=== PATIENT | female | born 1975 | race Caucasian/White ===

== ENCOUNTER 2017-09-18 14:24 | Emergency (ER) | payer BC, SELFPAY ==
[2017-09-18 15:00] VITALS: BP 147/82; PULSE 102; RESP 14; TEMP 36.6; O2SAT 97; BMI 39.7
[2017-09-18 23:16] LABS: UTC Influenza A Antigen Positive (Negative); UTC Influenza B Antigen Negative (Negative); UTC Strep Screen (Rapid) Negative (Negative)
== END 2017-09-18 15:15 | disposition home or self-care (01) ==
PROVIDERS: Emergency Provider Physician Assistant; Family Provider Family Medicine; PCP Family Medicine
DX: J10.1 Influenza due to other identified influenza virus with other respiratory manifestations (principal)
CPT/HCPCS: 87276; 87430; 87804; 87880; 99202

== ENCOUNTER → 2018-07-26 13:58 | Outpatient (CLI) | payer BC, SELFPAY ==
--- NOTE | 2018-07-26 14:02 | MM_ITS ---
MM Dig screening mamm BI w/CAD ORDERING PHYSICIAN : Neela Mckeon PATIENT AGE: 42 years GENDER: Female COMPARISON: Baseline study with no previous for comparison INDICATION: ITS.REASON: SCREENING no hormones no new complaints noncontributory family history. TECHNIQUE: Standard CC and MLO images were obtained. R2 CAD reviewed. FINDINGS: Low-density breast bilaterally. Generalized fatty replacement. No dominant mass nor suspicious calcifications in either breast. . No nodule or significant asymmetries. Multiple markers are placed bilaterally towards inferior breast. Annual follow-up recommended . IMPRESSION: . Negative baseline mammogram. .Low-density breast BI-RADS Category: 1 Negative RECOMMENDED FOLLOW-UP: 1YR 1 YEAR FOLLOW-UP (A letter has been sent to the patient regarding results of the study.)
== END ==
PROVIDERS: PCP Nurse Practitioner; Visit Provider Nurse Practitioner
DX: Z12.31 Encounter for screening mammogram for malignant neoplasm of breast (principal)
CPT/HCPCS: 77067

== ENCOUNTER → 2019-04-26 23:11 | Outpatient (CLI) | payer BC, SELFPAY | PROVIDERS: PCP Family Medicine; Visit Provider Emergency Medicine | DX: J45.909 Unspecified asthma, uncomplicated (principal); J40 Bronchitis, not specified as acute or chronic | CPT/HCPCS: 96372 ==

== ENCOUNTER → 2019-11-07 13:40 | Outpatient (CLI) | payer BC, SELFPAY ==
[2019-11-07 14:00] LABS: Basophils # 0.1 K/mm3 (0-0.2); Basophils % 0.7 % (0.1-2.0); Eosinophils # 0.1 K/mm3 (0.0-0.4); Eosinophils % 1.5 % (0.1-12.0); Hematocrit 43.1 % (37.0-47.0); Hemoglobin 13.7 g/dL (12.2-16.2); Lymphocytes # 1.7 K/mm3 (0.7-4.5); Lymphocytes % 20.9 % (10-50); Mean Corpuscular HGB Conc 31.7 g/dL (31.8-35.4); Mean Corpuscular Hemoglobin 25.9 pg (27.0-31.2); Mean Corpuscular Volume 81.7 fl (81-99); Mean Platelet Volume 7.7 fl (7.4-10.4); Monocytes # 0.4 K/mm3 (0.1-1.0); Monocytes % 4.4 % (1.7-9.3); Neutrophils # 5.8 K/mm3 (1.8-7.8); Neutrophils % 72.4 % (37.0-80.0); Platelet Count 401 K/mm3 (142-424); Red Blood Count 5.28 M/mm3 (4.20-5.40); Red Cell Distribution Width 14.2 % (11.5-17.5)
[2019-11-07 15:30] LABS: HCG Qualitative, Serum Negative (Negative)
[2019-11-07 15:43] LABS: Chloride 104 mmol/L (98-107); Potassium 4.8 mmoL/L (3.5-5.1); Sodium 138 mmol/L (136-145)
[2019-11-07 15:46] LABS: Anion Gap 15.8 mEq/L (5-15); Blood Urea Nitrogen 9 mg/dl (7-17); Carbon Dioxide 23 mmol/L (22.0-30.0); Estimated Glomerular Filt Rate 78 ml/min (>60); GFR (African American) 95 ML/MIN (>60); Glucose 116 mg/dl (74-100)
== END ==
PROVIDERS: Visit Provider Surgery
DX: L08.9 Local infection of the skin and subcutaneous tissue, unspecified (principal); L72.3 Sebaceous cyst
CPT/HCPCS: 36415; 80048; 84703; 85025

== ENCOUNTER 2020-07-28 09:07 | Emergency (ER) | payer BC, SELFPAY ==
[2020-07-28 09:20] VITALS: BP 158/99; PULSE 86; RESP 20; TEMP 36.7; O2SAT 99; BMI 39.4
--- NOTE | 2020-07-28 09:27 | XR_ITS ---
PROCEDURE: XR FOOT RT MIN 3V CLINICAL INDICATION: fall Pain following injury swelling in the the COMPARISON: No exams were available for comparison FINDINGS: No fracture or dislocation. No lytic or blastic change. There is normal mineralization. The joint spaces are well-preserved. No significant degenerative/arthritic changes. No erosive changes evident. Other findings:None. IMPRESSION: No acute findings. Dictated by: Lemuel Mayer MD 10/02/2020 14:33 Lemuel Mayer MD in [place] 10/02/2020 14:33
--- NOTE | 2020-07-28 09:27 | XR_ITS ---
PROCEDURE: XR ANKLE RT MIN 3V CLINICAL INDICATION: fall Pain following injury COMPARISON: No exams were available for comparison FINDINGS: No fracture or dislocation. No lytic or blastic change. There is normal mineralization. The joint spaces are well-preserved. No significant degenerative/arthritic changes. No erosive changes evident. Other findings:None. IMPRESSION: No acute findings. Dictated by: Lemuel Mayer MD 10/02/2020 14:34 Lemuel Mayer MD in [place] 10/02/2020 14:34
--- NOTE | 2020-07-28 09:58 | HMH.EDUTC ---
[facility] Disposition Clinical Impression: Right foot sprain Qualifiers: Encounter type: initial encounter Qualified Code(s): S93.601A - Unspecified sprain of right foot, initial encounter Right ankle sprain Qualifiers: Encounter type: initial encounter Involved ligament of ankle: unspecified ligament Qualified Code(s): S93.401A - Sprain of unspecified ligament of right ankle, initial encounter Disposition: Home, Self-Care Condition on Discharge: Good Instructions: DI for Ankle Sprain, DI for Foot Sprain Additional Instructions: Rest the extremity, apply ice for 15 minutes as tolerated three or four times per day, Wear the yovani wrap for compression, Elevate the extremity as tolerated while you are resting. Take ibuprofen for pain. I sent in a prescription to your pharmacy. Follow up with Dr. Vital (orthopedics). Sometimes there can be fractures that don't show up well on the first set of x-rays. So, you should follow up if you continue to have symptoms. I put in a referral but you need to call his office and schedule an appointment. Follow up with your regular doctor. GO TO THE ER FOR ANY WORSENING SYMPTOMS Prescriptions: Ibuprofen [Ibuprofen 600mg Tablet] 600 mg PO Q6HP PRN #30 tab PRN Reason: Mild Pain Transmission Status: Received by [facility] Referrals: Kaiser Rodgers MD [Primary Care Provider] - Omar Vital MD [Staff Physician] - Time of Disposition: 10:26 Medical Decision Making - Medical Records Medical records reviewed: No: I reviewed the patient's medical records. - Yves Inquiry Pt receiving controlled substance: No Vital Signs: 07/28/20 09:20 07/28/20 10:31 Temperature 98.1 F 98.1 F Temperature Source Oral Pulse Rate 86 Pulse Rate [Left Brachial] 86 Respiratory Rate 20 20 Blood Pressure 158/99 H Blood Pressure [Left Arm] 158/99 H Blood Pressure Mean [Left Arm] 118 Blood Pressure Source [Left Arm] Automatic Cuff Blood Pressure Position [Left Arm] Sitting 02 Sat by Pulse Oximetry 99 Oxygen Delivery Method Room Air Orders (Tests/Meds): ORDERS Category Date Time Status XR ankle RT min 3V Stat Exams 07/28/20 09:27 Taken XR foot RT min 3V Stat Exams 07/28/20 09:27 Taken - Radiology Data #1 Image(s): Ankle Image Reviewed: Yes I reviewed the patient's radiology image, Yes I have reviewed radiologist's interpretation Preliminary Findings: Normal/NAD, No Fracture Seen PROCEDURE: XR FOOT RT MIN 3V CLINICAL INDICATION: fall COMPARISON: No exams were available for comparison FINDINGS: No fracture or dislocation. No lytic or blastic change. There is normal mineralization. The joint spaces are well-preserved. No significant degenerative/arthritic changes. No erosive changes evident. Other findings:None. IMPRESSION: No acute findings. Dictated by: Test, Test 07/28/2020 10:14 Test, Test in [place] 07/28/2020 10:14 #2 Image(s): Foot/Toes Image Reviewed: Yes I reviewed the patient's radiology image, Yes I have reviewed radiologist's interpretation Preliminary Findings: Normal/NAD PROCEDURE: XR ANKLE RT MIN 3V Test dictation CLINICAL INDICATION: fall COMPARISON: No exams were available for comparison FINDINGS: IMPRESSION: No acute findings. Dictated by: Test, Test 07/28/2020 10:25 in [facility] HPI - General Stated complaint: AO [id number] right foot home accident Time Seen by Provider: 07/28/20 09:58 Mode of Arrival: Ambulatory Source of Information: Patient Limitations: No Limitations Description of Symptoms (Recalled from Triage Doc. by RN): PATIENT C/O PAIN/INJURY TO RIGHT FOOT AFTER FALLING OFF OF A STEP ON HER DECK TUESDAY. DENIES ANY OTHER INJURIES HEENT Symptoms (Recalled from RN notes): No Resp Symptoms (Recalled from RN notes): No Skin Symptoms (Recalled from RN notes): No MS Symptoms (Recalled from RN notes): Yes Functional Status (Recalled from RN notes): WNL
[2020-07-28 10:31] VITALS: BP 158/99; PULSE 86; RESP 20; TEMP 36.7; O2SAT 99
== END 2020-07-28 10:32 | disposition home or self-care (01) ==
PROVIDERS: Emergency Provider Nurse Practitioner Family; PCP Family Medicine
DX: S93.601A Unspecified sprain of right foot, initial encounter (principal); S93.401A Sprain of unspecified ligament of right ankle, initial encounter; W10.9XXA Fall (on) (from) unspecified stairs and steps, initial encounter; Y92.019 Unspecified place in single-family (private) house as the place of occurrence of the external cause
CPT/HCPCS: 73610; 73630; 99201

== ENCOUNTER → 2020-08-23 20:02 | Outpatient (CLI) | payer BC, SELFPAY ==
[2020-08-23 20:11] VITALS: BMI 34.3
== END ==
PROVIDERS: PCP Family Medicine; Visit Provider Nurse Practitioner
DX: J06.9 Acute upper respiratory infection, unspecified (principal)
CPT/HCPCS: 96372

== ENCOUNTER → 2022-06-23 09:41 | Outpatient (CLI) | payer BC, SELFPAY ==
[2022-06-23 12:43] LABS: Free Thyroxine Index 2.7 ug/dL (5.93-13.13); T4 (Thyroxine) 7.2 ug/dl (5.53-11.0); Triiodothryronine (T3) Uptake 37 % (23.5-40.5)
[2022-06-23 12:56] LABS: Thyroid Stimulating Hormone 2.14 uIU/mL (0.465-4.68)
== END ==
PROVIDERS: PCP Family Medicine; Visit Provider Obstetrics & Gynecology
DX: N92.0 Excessive and frequent menstruation with regular cycle (principal)
CPT/HCPCS: 36415; 84436; 84443; 84479

== ENCOUNTER → 2022-06-28 15:15 | Outpatient (CLI) | payer BC, SELFPAY ==
--- NOTE | 2022-06-28 15:15 | US_ITS ---
FINAL REPORT CLINICAL HISTORY: abnormal bleeding FINDINGS: Transvaginal sonographic images of the pelvis were obtained. The uterus measures 12.6 x 8.0 x 8.3 cm. Are multiple uterine fibroids measuring up to 4.1 cm.. The endometrium is not well visualized. No adnexal mass is seen. The right ovary measures 3.8 cm in length and left ovary measures 3.0 cm in length. Normal blood flow seen to the ovaries. There is no evidence of free fluid. No IUD is identified. IMPRESSION: Uterine fibroids measuring up to 4.1 cm. No IUD identified. Reviewed, Interpreted and Dictated by Jake Murrell III, MD Transcribed by Mikaela Wolff Authenticated and [facility]
== END ==
PROVIDERS: PCP Family Medicine; Visit Provider Obstetrics & Gynecology
DX: N93.9 Abnormal uterine and vaginal bleeding, unspecified (principal)
CPT/HCPCS: 76830

== ENCOUNTER → 2022-07-07 14:42 | Outpatient (CLI) | payer BC, SELFPAY ==
--- NOTE | 2022-07-07 14:43 | MM_ITS ---
PROCEDURE INFORMATION: Exam: MG Bilateral Screening 3D Mammography Exam date and time: 07/07/2022 2:47 PM Age: 46 years old Clinical indication: Screening. No family history of breast cancer. TECHNIQUE: Imaging protocol: Bilateral Screening tomosynthesis and 2D mammography including computer-aided detection (CAD) when performed. COMPARISON: MG SCBI MM Dig screening mamm BI w/CAD 07/26/2018 2:35 PM FINDINGS: MAMMOGRAPHY: Breast composition: The breasts are almost entirely fatty. Mass: None. Architectural distortion: None. Calcifications: No suspicious calcifications. Asymmetric density: None. Skin thickening: None. Axillary adenopathy: None. IMPRESSION: No mammographic evidence of malignancy. Annual screening is recommended unless otherwise clinically indicated. ASSESSMENT: BI-RADS Category 1: Negative
== END ==
PROVIDERS: PCP Family Medicine; Visit Provider Obstetrics & Gynecology
DX: Z12.31 Encounter for screening mammogram for malignant neoplasm of breast (principal)
CPT/HCPCS: 77063; 77067

== ENCOUNTER → 2022-11-05 15:42 | Outpatient (CLI) | payer BC, SELFPAY ==
[2022-11-05 16:59] LABS: T4 (Thyroxine) 10.5 ug/dl (5.53-11.0)
[2022-11-05 18:17] LABS: Free Thyroxine Index 3.2 ug/dL (5.93-13.13); Triiodothryronine (T3) Uptake 30 % (23.5-40.5)
== END ==
PROVIDERS: PCP Family Medicine; Visit Provider Obstetrics & Gynecology
DX: R79.89 Other specified abnormal findings of blood chemistry (principal)
CPT/HCPCS: 36415; 84436; 84443; 84479

== ENCOUNTER 2023-01-21 10:03 | Emergency (ER) | payer BC, SELFPAY ==
--- NOTE | 2023-01-21 10:09 | XR_ITS ---
FINAL REPORT CLINICAL HISTORY: PAIN IN GREAT TOE FINDINGS: Right foot Three views were obtained. There is no acute fracture or dislocation. Note is made of mild hallux valgus deformity. There are minimal degenerative changes in the midfoot and 1st metatarsophalangeal joint. No soft tissue abnormality is identified. IMPRESSION: No acute process. Reviewed, Interpreted and Dictated by Fernando Henriquez MD Transcribed by Tennille Lopez Authenticated and [facility]
--- NOTE | 2023-01-21 10:27 | EXP.UTC ---
Discharge Plan Disposition Patient Disposition: Home, Self-Care Condition: Good Prescriptions Prescriptions: New methylprednisolone 4 mg Tablets,Dose Pack 4 mg PO DIRECTED Qty: 21 0RF No Action Oriahnn 300-1-0.5mg(AM) /300 mg(PM) capsule, sequential See Rx Instructions PO .COMPLEX Qty: 56 12RF Rx Instructions: take 1 YELLOW (multi-ingredient) capsule each morning; take 1 BLUE (elagolix) capsule each evening PO Referrals Follow up/Referrals: Alberto Palomino MD [Primary Care Provider] - See instructions Oneida Metcalf DPM [Staff Physician] - See instructions Activity Restrictions/Add. Instructions Additional Instructions/Restrictions: Rest the extremity, Elevate the extremity as tolerated while you are resting. Follow up with Dr. Metcalf (podiatry). I put in a referral but you need to call her office and schedule an appointment. Follow up with your regular doctor. GO TO THE ER FOR ANY WORSENING SYMPTOMS Clinical Impressions Clinical Impression: Acute pain of right foot Stand Alone Forms Stand Alone Forms: Work/School Release Instructions Patient Instructions: DI for Metatarsalgia, DI for Foot Pain Discharge ED Provider: Hunter Dinero [facility] General Stated complaint: right big toe pain Time Seen by Provider: 01/21/23 10:27 History of Present Illness Provider Complaint: She c/o right foot pain for the past 2 days with no known injury. she denies any history of gout. She is not a diabetic. Related Data Previous Rx's Medication Instructions Recorded [id number] 300-1-0.5 See Rx Instructions PO .COMPLEX 06/30/22 mg(AM)/elagolix 300 mg(PM) #56 caps capsules (Oriahnn) methylprednisolone 4 mg tablets in 4 mg PO DIRECTED #21 tabs 01/21/23 a dose pack Allergies Allergy/AdvReac Type Severity Reaction Status Date / Time erythromycin base Allergy Verified 06/30/22 07:58 [facility] Disclaimer: The information contained in this section may have been updated after the patient was seen, as this information can be updated by other users. Medical History Dysmenorrhea Enlarged uterus History of PCOS Menorrhagia Obesity (BMI 35.0-39.9 without comorbidity) Uterine fibroid Surgical History History of section, classical History of cholecystectomy History of removal of neck cyst History of wisdom tooth extraction, class I edentulism Social History Smoking Status: Never smoker alcohol intake: never substance use type: other current occupational status: other Travel in the last 8 weeks: None household members: spouse housing: house current occupation: [employer] caffeine: Yes ROS Obtained: Yes All systems reviewed & no additional complaints except as documented Constitutional Constitutional: Denies chills and Denies fever(s) Eyes Eyes: Denies eye discharge ENT Ears, Nose, Mouth, and Throat: Denies dizziness, Denies otalgia and Denies sore throat Cardiovascular Cardiovascular: Denies chest pain Respiratory Respiratory: Denies shortness of breath, Denies chest congestion, Denies cough, Denies stridor and Denies wheezing Gastrointestinal Gastrointestingal: Denies nausea or vomiting Musculoskeletal Musculoskeletal: Reports as per HPI Integumentary/Breasts Skin/Breast: Denies rash Neurologic Neurologic: Denies dizziness and Denies paresthesias Allergic/Immunologic Allergic/Immunologic: Denies wheezing Physical Exam General General appearance: alert and in no apparent distress Head Head exam: atraumatic, normocephalic and normal inspection Eye Eye exam: Present normal appearance, PERRL and EOMI ENT ENT exam: Present normal exam, normal oropharynx, mucous membranes moist, TM's normal bilaterally and normal external ear exam Neck Neck exam: Present normal inspection, full ROM
[2023-01-21 10:29] VITALS: BP 118/87; PULSE 80; RESP 18; TEMP 37.4; O2SAT 99; BMI 40.8
[2023-01-21 11:22] LABS: Chloride 100 mmol/L (98-107); Sodium 138 mmol/L (136-145)
[2023-01-21 11:23] LABS: Potassium 4.1 mmoL/L (3.5-5.1)
[2023-01-21 11:26] LABS: Anion Gap 17.1 mEq/L (5-15); Blood Urea Nitrogen 9 mg/dl (7-17); Calcium 8.7 mg/dl (8.4-10.2); Carbon Dioxide 25 mmol/L (22.0-30.0); Creatinine Clearance Estimated 150 mL/min (50-200); Estimated Glomerular Filt Rate 77 ml/min (>60); GFR (African American) 93 ML/MIN (>60); Glucose 98 mg/dl (74-100)
[2023-01-21 11:27] LABS: Basophils # 0.1 K/mm3 (0-0.2); Basophils % 0.9 % (0.1-2.0); Eosinophils # 0.1 K/mm3 (0.0-0.4); Eosinophils % 1.7 % (0.1-12.0); Hematocrit 35.8 % (37.0-47.0); Hemoglobin 11.4 g/dL (12.2-16.2); Lymphocytes # 1.8 K/mm3 (0.7-4.5); Mean Corpuscular HGB Conc 31.8 g/dL (31.8-35.4); Mean Corpuscular Volume 66.1 fl (81-99); Mean Platelet Volume 7.8 fl (7.4-10.4); Monocytes # 0.4 K/mm3 (0.1-1.0); Monocytes % 5.6 % (1.7-9.3); Neutrophils # 4.5 K/mm3 (1.8-7.8); Neutrophils % 65.9 % (37.0-80.0); Platelet Count 432 K/mm3 (142-424); Red Blood Count 5.41 M/mm3 (4.20-5.40); White Blood Count 6.8 K/mm3 (4.8-10.8)
[2023-01-21 11:31] LABS: C-Reactive Protein 9.9 mg/L (0-4); Uric Acid 4.3 mg/dl (2.5-6.2)
[2023-01-21 12:10] VITALS: BP 118/87; PULSE 80; RESP 18; TEMP 37.4; O2SAT 99
[2023-01-21 12:26] LABS: Erythrocyte Sedimentation Rate 16 mm/hr (0-20)
== END 2023-01-21 12:20 | disposition home or self-care (01) ==
PROVIDERS: Emergency Provider Nurse Practitioner Family; PCP Family Medicine
DX: M79.671 Pain in right foot (principal)
CPT/HCPCS: 73630; 80048; 84550; 85025; 85651; 86140; 96372; 99212; 99214; G0463

== ENCOUNTER → 2023-05-12 00:07 | Outpatient (CLI) | payer BC, SELFPAY | PROVIDERS: PCP Nurse Practitioner Family; Visit Provider Nurse Practitioner Family | DX: J02.9 Acute pharyngitis, unspecified (principal) | CPT/HCPCS: 87070 ==

== ENCOUNTER → 2023-05-12 16:46 | Outpatient (CLI) | payer BC, SELFPAY ==
[2023-05-12 11:57] LABS: Coronavirus 19, PCR Not Detected (NotDetected); Influenza A, PCR Not Detected (NotDetected); Influenza B, PCR Not Detected (NotDetected)
== END ==
PROVIDERS: PCP Nurse Practitioner Family; Visit Provider Nurse Practitioner Family
DX: J02.9 Acute pharyngitis, unspecified (principal); J06.9 Acute upper respiratory infection, unspecified
CPT/HCPCS: 87636

== ENCOUNTER 2023-05-16 21:24 | Emergency (ER) | payer BC, SELFPAY ==
--- NOTE | 2023-05-16 01:00 | XR_ITS ---
PROCEDURE INFORMATION: Exam: XR Left Hip Exam date and time: 05/16/2023 11:43 PM Age: 47 years old Clinical indication: Injury or trauma; Fall; Blunt trauma (contusions or hematomas); Left; Hip; Additional info: Acute pain after fall TECHNIQUE: Imaging protocol: Radiologic exam of the left hip. Views: 2 or 3 views hip with pelvis when performed. COMPARISON: CR XR FEMUR LT 2V 05/16/2023 10:25 PM FINDINGS: Bones/joints: There is mild osteoarthritis of the hips with joint space narrowing, productive changes, and subchondral sclerosis. There are partially visualized degenerative changes of the sacroiliac joints and lumbar spine as well as some degenerative disease of the pubic symphysis. Soft tissues: Unremarkable. Other findings: The examination is limited by under penetration. IMPRESSION: Mildly limited study without evidence for fracture. If concern persists, CT would be more sensitive.
[2023-05-16 21:25] VITALS: BP 173/85; PULSE 87; RESP 20; TEMP 37.3; O2SAT 98; BMI 40.3
--- NOTE | 2023-05-16 21:40 | PC.NURSE ---
V/O for left XR for femur and knee per MD as well as 4mg of Zofran IVP and 4mg Morphine IVP
--- NOTE | 2023-05-16 21:41 | XR_ITS ---
PROCEDURE INFORMATION: Exam: XR Left Femur Exam date and time: 05/16/2023 10:25 PM Age: 47 years old Clinical indication: Injury or trauma; Fall; Blunt trauma; Thigh or upper leg; Patient HX: Patient fell down hill, left distal femur pain. TECHNIQUE: Imaging protocol: Radiologic exam of the left femur. Views: 2 views. COMPARISON: No relevant prior studies available. FINDINGS: Bones/joints: There is partially visualized degenerative disease of the knee and left hip. No acute fracture or dislocation is identified. Soft tissues: Unremarkable. IMPRESSION: Degenerative disease without acute injury identified.
--- NOTE | 2023-05-16 21:41 | XR_ITS ---
PROCEDURE INFORMATION: Exam: XR Left Knee Exam date and time: 05/16/2023 10:25 PM Age: 47 years old Clinical indication: Injury or trauma; Blunt trauma; Patient HX: Left knee pain due to fall down hill. TECHNIQUE: Imaging protocol: Radiologic exam of the left knee. Views: 3 views. COMPARISON: No relevant prior studies available. FINDINGS: Bones/joints: There is tricompartmental osteoarthritis with loss of joint space, subchondral sclerosis, and productive changes. No acute fracture or dislocation is identified. Soft tissues: Normal. IMPRESSION: Degenerative disease without acute injury identified.
[2023-05-16 23:30] VITALS: BP 123/72; PULSE 85; RESP 20; O2SAT 97
--- NOTE | 2023-05-16 23:38 | HMH.EDGENADL ---
Discharge Plan Disposition Patient Disposition: Home, Self-Care Condition: Good Prescriptions Prescriptions: No Action bupropion HCl [Wellbutrin XL] 300 mg tablet extended release 24 hr 300 mg PO DAILY Qty: 90 3RF hydrochlorothiazide 12.5 mg capsule 12.5 mg PO DAILY Qty: 90 0RF benzonatate 200 mg capsule 200 mg PO TID PRN (Reason: cough) 10 Days Qty: 30 0RF Oriahnn 300-1-0.5mg(AM) /300 mg(PM) capsule, sequential See Rx Instructions PO .COMPLEX Qty: 56 12RF Rx Instructions: take 1 YELLOW (multi-ingredient) capsule each morning; take 1 BLUE (elagolix) capsule each evening PO dextroamphetamine-amphetamine [Adderall XR] 10 mg capsule,extended release 24hr 10 mg PO DAILY Qty: 30 0RF Referrals Follow up/Referrals: Melania Camacho APRN [Primary Care Provider] - See instructions Activity Restrictions/Add. Instructions Additional Instructions/Restrictions: Please return to the emergency department if you experience any new or worsening symptoms. Clinical Impressions Clinical Impression: Hamstring muscle strain Qualifiers: Encounter type: initial encounter Laterality: left Qualified Code(s): S76.312A - Strain of muscle, fascia and tendon of the posterior muscle group at thigh level, left thigh, initial encounter Discharge ED Provider: Juanjo Coles General Adult HPI General Chief complaint: Extremity Injury, Lower Stated complaint: AO09/04 fall LT leg pain Time Seen by Provider: 05/16/23 23:30 Mode of Arrival: Ambulatory Source of Information: Patient Limitations: No Limitations Description of Symptoms (Recalled from ER Triage Doc. by RN): Patient reports she slipped down a hill with left leg forward and the other leg backward. PAtient reports shooting pain down left thigh into her ankle. +PMS. Denies LOC or hitting head during fall History of Present Illness HPI narrative: Patient presents for evaluation of left gluteal and posterior thigh pain acute in onset, constant, stable in course occurring after nonsyncopal fall from standing shortly prior to arrival, patient denies chronic issues with motor weakness or any previous surgeries of lower extremity or back. No previous therapies, denies head injury or any midline spinal tenderness, pain is sharp and nonradiating. No distal numbness or tingling. Patient has been able to ambulate. Related Data Previous Rx's Medication Instructions Recorded [id number] 300-1-0.5 See Rx Instructions PO .COMPLEX 06/30/22 mg(AM)/elagolix 300 mg(PM) #56 caps capsules (Oriahnn) bupropion HCl 300 mg 24 hr tablet, 300 mg PO DAILY #90 tabs 05/12/23 extended release (Wellbutrin XL) dextroamphetamine-amphetamine ER 10 mg PO DAILY #30 caps 05/12/23 10 mg 24hr capsule,extend release (Adderall XR) hydrochlorothiazide 12.5 mg capsule 12.5 mg PO DAILY #90 caps 05/12/23 benzonatate 200 mg capsule 200 mg PO TID PRN cough 10 days 05/13/23 #30 caps Allergies Allergy/AdvReac Type Severity Reaction Status Date / Time erythromycin base AdvReac Mild Vomiting Verified 05/12/23 10:55 [facility] Disclaimer: The information contained in this section may have been updated after the patient was seen, as this information can be updated by other users. Medical History Acute pain of right foot Dehydration after exertion Dysmenorrhea Enlarged uterus History of PCOS Menorrhagia Obesity (BMI 35.0-39.9 without comorbidity) Right ankle sprain Right foot sprain Tension headache Uterine fibroid Walking pneumonia Surgical History History of section, classical History of cholecystectomy History of removal of neck cyst History of wisdom tooth extraction, class I edentulism Social History Smoking Status: Never smoker alcohol intake: never substance use type: other current occupat
[2023-05-17] VITALS: BP 132/74; PULSE 80; RESP 18; O2SAT 97
[2023-05-17 00:30] VITALS: BP 121/71; PULSE 76; RESP 20; O2SAT 96
--- NOTE | 2023-05-17 00:56 | PC.NURSE ---
Report handed off to shift superintendent Shanna DAVID
[2023-05-17 01:00] VITALS: BP 131/86; PULSE 71; RESP 16; O2SAT 98
--- NOTE | 2023-05-17 01:05 | PC.NURSE ---
Report given to Alec DAVID
[2023-05-17 01:30] VITALS: BP 143/89; PULSE 75; O2SAT 97
--- NOTE | 2023-05-17 02:10 | PC.NURSE ---
in room talking with patient at this time.
[2023-05-17 02:20] VITALS: BP 143/89; PULSE 74; RESP 16; TEMP 37; O2SAT 98
== END 2023-05-17 02:25 | disposition home or self-care (01) ==
PROVIDERS: Emergency Provider Emergency Medicine; PCP Nurse Practitioner Family
DX: S76.312A Strain of muscle, fascia and tendon of the posterior muscle group at thigh level, left thigh, initial encounter (principal); W17.81XA Fall down embankment (hill), initial encounter
CPT/HCPCS: 73502; 73552; 73562; 96374; 96375; 99284; J2405

== ENCOUNTER → 2023-06-08 11:40 | Outpatient (CLI) | payer BC, SELFPAY ==
[2023-06-08 11:46] LABS: Microscopic, Urine URINE MICROSCOPIC (MICROSCOPIC)
[2023-06-08 12:13] LABS: Appearance,Urine CLEAR (Clear); Bilirubin,Urine Negative (Negative); Blood, Urine Negative (Negative); Color,Urine YELLOW (Yellow); Glucose,Urine (UA) Negative (Negative); Ketones,Urine Negative (Negative); Leukocyte Esterase,Urine Negative (Negative); Nitrate,Urine Negative (Negative); Protein,Urine Negative (Negative); Specific Gravity, Urine 1.025 (1.005-1.030); Urobilinogen,Urine 0.2 EU/dl (0.2)
[2023-06-08 12:14] LABS: Basophils % 0.6 % (0.1-2.0); Eosinophils # 0.1 K/mm3 (0.0-0.4); Eosinophils % 2.4 % (0.1-12.0); Hemoglobin 12.1 g/dL (12.2-16.2); Lymphocytes # 1.6 K/mm3 (0.7-4.5); Lymphocytes % 29.4 % (10-50); Mean Corpuscular HGB Conc 30.3 g/dL (31.8-35.4); Mean Corpuscular Hemoglobin 23.3 pg (27.0-31.2); Mean Corpuscular Volume 76.9 fl (81-99); Mean Platelet Volume 6.8 fl (7.4-10.4); Monocytes # 0.4 K/mm3 (0.1-1.0); Monocytes % 6.5 % (1.7-9.3); Neutrophils # 3.3 K/mm3 (1.8-7.8); Neutrophils % 61.2 % (37.0-80.0); Platelet Count 412 K/mm3 (142-424); Red Cell Distribution Width 16.8 % (11.5-17.5); White Blood Count 5.4 K/mm3 (4.8-10.8)
[2023-06-08 12:29] LABS: Bacteria,Urine Trace /lpf; Mucus,Urine Trace /lpf; Squamous Epithelial Cell,Urine Occasional #/hpf (0-5)
[2023-06-08 12:30] LABS: Hemoglobin A1C 5.6 % (4.0-6.0); Total Protein,Urine Random < 5.0 mg/dL (0.0-12.0)
[2023-06-08 12:34] LABS: Benzodiazepines Screen,Urine Negative ng/ml (<200)
[2023-06-08 12:35] LABS: Amphetamine/Metha Screen,Urine Positive ng/ml (<1000)
[2023-06-08 12:36] LABS: Barbiturates Screen,Urine Negative ng/ml (<200); Methadone Screen,Urine Negative ng/ml (<300)
[2023-06-08 12:37] LABS: Cannabinoid Screen,Urine Negative ng/ml (<50)
[2023-06-08 12:38] LABS: Cocaine Screen,Urine Negative ng/ml (<300); Opiate Screen,Urine Negative ng/ml (<300)
[2023-06-08 12:39] LABS: Phencyclidine Screen,Urine Negative ng/ml (<25)
[2023-06-08 12:58] LABS: Alanine Aminotransferase 29 U/L (12-78); Albumin Level 4.1 g/dl (3.5-5.0); Albumin/Globulin Ratio 1.2 (1.1-1.8); Alkaline Phosphatase 63 U/L (38-126); Anion Gap 12.8 mEq/L (5-15); Aspartate Amino Transferase 29 U/L (14-36); Bilirubin,Total 0.5 mg/dl (0.2-1.3); Blood Urea Nitrogen 10 mg/dl (7-17); Calcium 9.5 mg/dl (8.4-10.2); Carbon Dioxide 27 mmol/L (22.0-30.0); Chloride 104 mmol/L (98-107); Cholesterol 176 mg/dl (140-200); Estimated Glomerular Filt Rate 67 ml/min (>60); GFR (African American) 82 ML/MIN (>60); Globulin 3.3 g/dL (1.3-3.2); Glucose 96 mg/dl (74-100); HDL Cholesterol 44 mg/dl (40-60); Potassium 3.8 mmoL/L (3.5-5.1); Sodium 140 mmol/L (136-145); Total Protein,Serum 7.4 g/dl (6.3-8.2); Triglycerides 80 mg/dl (30-150); Uric Acid 6.5 mg/dl (2.5-6.2); VLDL Cholesterol 16 mg/dL (0-40)
[2023-06-08 13:26] LABS: Thyroid Stimulating Hormone 2.09 uIU/mL (0.465-4.68)
[2023-06-08 13:27] LABS: 25-OH Vitamin D, Total 40.1 ng/mL (30-100); Free T4 (Free Thyroxine) 0.95 ng/dl (0.78-2.19)
[2023-06-08 13:45] LABS: Vitamin B12 511 pg/mL (239-931)
[2023-06-08 14:01] LABS: Erythrocyte Sedimentation Rate 7 mm/hr (0-20)
[2023-06-09 12:44] LABS: C-Reactive Protein 5.1 mg/L (0-4)
== END ==
PROVIDERS: PCP Nurse Practitioner Family; Visit Provider Nurse Practitioner Family
DX: F42.9 Obsessive-compulsive disorder, unspecified (principal); F32.A Depression, unspecified; F98.8 Other specified behavioral and emotional disorders with onset usually occurring in childhood and adolescence; I10 Essential (primary) hypertension; R53.83 Other fatigue; M10.9 Gout, unspecified; Z13.220 Encounter for screening for lipoid disorders; Z13.1 Encounter for screening for diabetes mellitus; E66.9 Obesity, unspecified; Z68.41 Body mass index [BMI] 40.0-44.9, adult; Z79.899 Other long term (current) drug therapy
CPT/HCPCS: 36415; 80053; 80061; 80305; 81001; 82306; 82607; 83036; 84155; 84439; 84443; 84550; 85025; 85651; 86140; 87086

== ENCOUNTER → 2023-09-07 23:34 | Outpatient (CLI) | payer BC, SELFPAY ==
[2023-09-07 21:24] LABS: Amphetamine/Metha Screen,Urine Positive ng/ml (<1000)
[2023-09-07 21:25] LABS: Barbiturates Screen,Urine Negative ng/ml (<200)
[2023-09-07 21:26] LABS: Benzodiazepines Screen,Urine Negative ng/ml (<200); Cannabinoid Screen,Urine Negative ng/ml (<50)
[2023-09-07 21:27] LABS: Cocaine Screen,Urine Negative ng/ml (<300)
[2023-09-07 21:28] LABS: Methadone Screen,Urine Negative ng/ml (<300); Opiate Screen,Urine Negative ng/ml (<300)
[2023-09-07 21:30] LABS: Phencyclidine Screen,Urine Negative ng/ml (<25)
== END ==
PROVIDERS: PCP Nurse Practitioner Family; Visit Provider Nurse Practitioner Acute Care
DX: F32.A Depression, unspecified (principal); F42.9 Obsessive-compulsive disorder, unspecified; F98.8 Other specified behavioral and emotional disorders with onset usually occurring in childhood and adolescence
CPT/HCPCS: 80305

== ENCOUNTER 2023-09-29 08:24 | Outpatient (CLI) | payer BC, SELFPAY ==
--- NOTE | 2023-09-29 08:25 | MM_ITS ---
PROCEDURE INFORMATION: Exam: MG Bilateral Screening 3D Mammography Exam date and time: 09/29/2023 8:27 AM Age: 48 years old Clinical indication: Screening examination TECHNIQUE: Imaging protocol: Bilateral Screening tomosynthesis and 2D mammography including computer-aided detection (CAD) when performed. COMPARISON: 1. MG MM DIG SCREENING MAMM BI W/CAD 07/07/2022 2:47 PM 2. MG SCBI MM Dig screening mamm BI w/CAD 07/26/2018 2:35 PM FINDINGS: MAMMOGRAPHY: Breast composition: The breasts are almost entirely fatty. Mass: None. Architectural distortion: None. Calcifications: No suspicious calcifications. Asymmetric density: None. Skin thickening: None. Axillary adenopathy: None. IMPRESSION: No mammographic evidence of malignancy. Annual screening is recommended unless otherwise clinically indicated. ASSESSMENT: BI-RADS Category 1: Negative
== END 2023-09-29 23:59 ==
LOC: RAD 08:25
PROVIDERS: PCP Nurse Practitioner Family; Visit Provider Obstetrics & Gynecology
DX: Z12.31 Encounter for screening mammogram for malignant neoplasm of breast (principal)
CPT/HCPCS: 77063; 77067

== ENCOUNTER 2023-10-14 14:52 | Outpatient (CLI) | payer BC, SELFPAY ==
[2023-10-14 14:28] LABS: Basophils # 0.1 K/mm3 (0-0.2); Basophils % 0.7 % (0.1-2.0); Eosinophils # 0.1 K/mm3 (0.0-0.4); Eosinophils % 1.4 % (0.1-12.0); Hematocrit 40.6 % (37.0-47.0); Lymphocytes # 1.8 K/mm3 (0.7-4.5); Mean Corpuscular HGB Conc 34.5 g/dL (31.8-35.4); Mean Corpuscular Hemoglobin 27.7 pg (27.0-31.2); Mean Corpuscular Volume 80.3 fl (81-99); Mean Platelet Volume 8.1 fl (7.4-10.4); Monocytes # 0.5 K/mm3 (0.1-1.0); Monocytes % 7.3 % (1.7-9.3); Neutrophils # 4.9 K/mm3 (1.8-7.8); Neutrophils % 66.6 % (37.0-80.0); Platelet Count 369 K/mm3 (142-424); Red Blood Count 5.06 M/mm3 (4.20-5.40); Red Cell Distribution Width 15.1 % (11.5-17.5); White Blood Count 7.4 K/mm3 (4.8-10.8)
[2023-10-14 15:26] LABS: Alanine Aminotransferase 91 U/L (12-78); Albumin Level 4.1 g/dl (3.5-5.0); Albumin/Globulin Ratio 1.5 (1.1-1.8); Alkaline Phosphatase 63 U/L (38-126); Anion Gap 11.7 mEq/L (5-15); Aspartate Amino Transferase 50 U/L (14-36); Bilirubin,Total 0.2 mg/dl (0.2-1.3); Blood Urea Nitrogen 12 mg/dl (7-17); Calcium 9.3 mg/dl (8.4-10.2); Carbon Dioxide 29 mmol/L (22.0-30.0); Chloride 102 mmol/L (98-107); Estimated Glomerular Filt Rate 59 ml/min (>60); GFR (African American) 72 ML/MIN (>60); Globulin 2.8 g/dL (1.3-3.2); Glucose 90 mg/dl (74-100); Magnesium 1.9 mg/dl (1.6-2.3); Phosphorous 3.8 mg/dl (2.5-4.5); Potassium 3.7 mmoL/L (3.5-5.1); Sodium 139 mmol/L (136-145); Total Protein,Serum 6.9 g/dl (6.3-8.2)
== END 2023-10-14 23:59 ==
LOC: LAB.DROPOF 14:52
PROVIDERS: PCP Nurse Practitioner Family; Visit Provider Nurse Practitioner Family
DX: G24.5 Blepharospasm (principal); R42 Dizziness and giddiness; R51.9 Headache, unspecified; R71.8 Other abnormality of red blood cells
CPT/HCPCS: 80053; 83735; 84100; 85025

== ENCOUNTER 2024-02-08 08:42 | Emergency (ER) | payer BC, SELFPAY ==
[2024-02-08 08:53] VITALS: BP 120/88; PULSE 78; RESP 20; TEMP 36.8; O2SAT 98; BMI 33.5
--- NOTE | 2024-02-08 08:59 | EXP.UTC ---
Discharge Plan Disposition Patient Disposition: Home, Self-Care Condition: Good Prescriptions Prescriptions: New prednisone 10 mg tablets,dose pack See Rx Instructions .ROUTE .COMPLEX Qty: 21 0RF Rx Instructions: Take as directed on package instructions No Action allopurinol 100 mg tablet 100 mg PO DAILY Qty: 90 3RF bupropion HCl [Wellbutrin XL] 300 mg tablet extended release 24 hr 300 mg PO DAILY Qty: 90 3RF hydrochlorothiazide 12.5 mg capsule 12.5 mg PO DAILY Qty: 90 3RF lisinopril 20 mg tablet 20 mg PO DAILY Qty: 90 3RF dextroamphetamine-amphetamine [Adderall XR] 20 mg capsule,extended release 24hr 20 mg PO DAILY Qty: 30 0RF Oriahnn 300-1-0.5mg(AM) /300 mg(PM) capsule, sequential 1 cap PO DAILY Referrals Follow up/Referrals: Melania Camacho APRN [Primary Care Provider] - See instructions Activity Restrictions/Add. Instructions Additional Instructions/Restrictions: Start oral steriods tomorrow Oatmeal baths may help to soothe the rash and help to dry the rash up Over the counter Benadryl and/or Benadryl cream may help with itching Calamine lotion may help with itching Clinical Impressions Clinical Impression: Poison gabriel dermatitis Instructions Patient Instructions: Summertime Rashes: Poison Gabriel, [place], and [place], DI for Rash Discharge ED Provider: Kira Alicia [facility] HPI General Stated complaint: poison gabriel Mode of Arrival: Ambulatory Source of Information: Patient Limitations: No Limitations Time Seen by Provider: 02/08/24 09:02 Description of Symptoms (Recalled from Triage Doc. by RN): PATIENT C/O POISON GABRIEL RASH AROUND EYES. SHE STATES SHE WAS EXPOSED LAST NIGHT HEENT Symptoms (Recalled from RN notes): No Resp Symptoms (Recalled from RN notes): No Skin Symptoms (Recalled from RN notes): Yes MS Symptoms (Recalled from RN notes): No Functional Status (Recalled from RN notes): WNL History of Present Illness Provider Complaint: Patient states that she has been working outside in the [employer] and noticed last night she was breaking out in poison gabriel rash on her face and legs States that the rash is close to her eyes so she came in to get a shot to try to help with it Related Data Home Medications Medication Instructions Recorded Confirmed [id number] 300-1-0.5 1 cap PO DAILY 02/08/24 02/08/24 mg(AM)/elagolix 300 mg(PM) capsules (Orinn) Previous Rx's Medication Instructions Recorded allopurinol 100 mg tablet 100 mg PO DAILY #90 tabs 12/07/23 bupropion HCl 300 mg 24 hr tablet, 300 mg PO DAILY #90 tabs 12/07/23 extended release (Wellbutrin XL) hydrochlorothiazide 12.5 mg capsule 12.5 mg PO DAILY #90 caps 12/07/23 lisinopril 20 mg tablet 20 mg PO DAILY #90 tabs 12/07/23 dextroamphetamine-amphetamine ER 20 mg PO DAILY #30 caps 02/01/24 20 mg 24hr capsule,extend release (Adderall XR) prednisone 10 mg tablets in a dose See Rx Instructions PO .COMPLEX 02/08/24 pack #21 tabs Allergies Allergy/AdvReac Type Severity Reaction Status Date / Time erythromycin base AdvReac Mild Vomiting Verified 01/18/24 10:13 Worker's Comp Is this a Worker's Comp case?: No [facility] Disclaimer: The information contained in this section may have been updated after the patient was seen, as this information can be updated by other users. Medical History (Updated 02/08/24 @ 09:08 by Kira Alicia APRN) Eye twitch Dizziness Headache Skin lesion of chest wall Depression Acute pain of right foot Enlarged uterus Uterine fibroid Obesity (BMI 35.0-39.9 without comorbidity) Dysmenorrhea Menorrhagia History of PCOS Tension headache Surgical History History of removal of neck cyst History of wisdom tooth extraction, class I edentulism History of cholecystectomy History of section, classical Family History Other No significant family history Social History Smoking Status: Never smoker alcohol intake: never substance use type: other current occupational status: other Travel in the last 8 weeks: None household members: spouse housing: house current occupation: [employer] caffeine: Yes ROS Obtained: Yes All systems reviewed & no additional complaints except as documented and Yes Systems reviewed as appropriate & no additional complaints except as documented Constitutional Constitutional: Reports system reviewed and no additional complaints, except as documented and Reports as per HPI ENT Ears, Nose, Mouth, and Throat: Reports system reviewed and no additional complaints, except as documented and Reports as per HPI Cardiovascular Cardiovascular: Reports system reviewed and no additional complaints, except as documented and Reports as per HPI Respiratory Respiratory: Reports system reviewed and no additional complaints, except as documented and Reports as per HPI Integumentary/Breasts Skin/Breast: Reports system reviewed and no additional complaints, except as documented, Reports as per HPI, Reports pruritus and Reports rash Physical Exam General General appearance: alert and in no apparent distress Eye Eye exam: Present normal appearance and PERRL ENT ENT exam: Present mucous membranes moist Respiratory Respiratory exam: Present normal lung sounds bilaterally; Absent respiratory distress or wheezes Cardiovascular Cardiovascular exam: Present regular rate, normal rhythm and normal heart sounds Neurological Exam Neurological exam: Present alert, oriented X3 and normal gait Skin Skin exam: Present rash (linear like rash on face under eye on cheek and on lower extremities like that seen with poison gabriel) Medical Decision Making Yves Inquiry Pt receiving controlled substance: No Yves was queried for this patient: No Vital Signs: 02/08/24 08:53 Temperature 98.2 F Temperature Source Oral Pulse Rate [Right Brachial] 78 Respiratory Rate 20 Blood Pressure [Right Arm] 120/88 Blood Pressure Mean [Right Arm] 98 Blood Pressure Source [Right Arm] Automatic Cuff Blood Pressure Position [Right Arm] Sitting 02 Sat by Pulse Oximetry 98 Oxygen Delivery Method Room Air
[2024-02-08] MEDS: METHYLPREDNISOLONE SOD SUCC 125MG VIAL 125 MG IM (09:10)
[2024-02-08 09:16] VITALS: BP 120/88; PULSE 78; RESP 20; TEMP 36.8; O2SAT 98
== END 2024-02-08 09:18 | disposition home or self-care (01) ==
PROVIDERS: Emergency Provider Nurse Practitioner; PCP Nurse Practitioner Family
DX: L23.7 Allergic contact dermatitis due to plants, except food (principal); W60.XXXA Contact with nonvenomous plant thorns and spines and sharp leaves, initial encounter
CPT/HCPCS: 96372; 99212; 99214; G0463

== ENCOUNTER 2024-02-22 10:48 | Outpatient (CLI) | payer BC, SELFPAY ==
[2024-02-22 20:12] LABS: Amphetamine/Metha Screen,Urine Positive ng/ml (<1000)
[2024-02-22 20:13] LABS: Barbiturates Screen,Urine Negative ng/ml (<200); Benzodiazepines Screen,Urine Negative ng/ml (<200)
[2024-02-22 20:14] LABS: Cannabinoid Screen,Urine Negative ng/ml (<50)
[2024-02-22 20:15] LABS: Cocaine Screen,Urine Negative ng/ml (<300); Methadone Screen,Urine Negative ng/ml (<300)
[2024-02-22 20:16] LABS: Opiate Screen,Urine Negative ng/ml (<300)
[2024-02-22 20:17] LABS: Phencyclidine Screen,Urine Negative ng/ml (<25)
== END 2024-02-22 23:59 | disposition home or self-care (01) ==
LOC: LAB.DROPOF 02-23 10:49
PROVIDERS: PCP Nurse Practitioner Acute Care; Visit Provider Nurse Practitioner Acute Care
DX: Z79.899 Other long term (current) drug therapy (principal)
CPT/HCPCS: 80307

== ENCOUNTER 2024-10-10 08:52 | Outpatient (CLI) | payer BC, SELFPAY ==
--- NOTE | 2024-10-10 08:53 | US_ITS ---
PROCEDURE: US TRANSVAGINAL CLINICAL INDICATION: Pelvic Pain COMPARISON: US US TRANSVAGINAL from 06/28/2022 FINDINGS: Transvaginal and transabdominal sonographic images of the pelvis were obtained. UTERUS: 10.9 cm x 8.5cmx 7.1cm enlarged, retroflexed and axial with a combined endometrial thickness of 9.3mm. Difficult exam. There are least 6 fibroids within the uterus. Fibroid 1. 3.73 cm Fibroid 2. 2.56 cm. Fibroid 3. 1.41 cm Fibroid 4. 3.74 cm Fibroid 5. 3.35 cm Fibroid 6. 2.96 cm LEFT OVARY: 3.6 cmx3.4cmx3.0cm with a volume of 19ml. RIGHT OVARY: 3.0cmx 3.1cmx1.2cm with a volume of 5.6ml. Both ovaries are seen and appear normal. Doppler flow to both ovaries are seen. There is no fluid in the cul-de-sac. IMPRESSION: 1. Retroflexed and axial uterus, enlarged and bulky with at least 6 fibroids. The largest measures 3.73 cm. The endometrium is normal. Difficult exam due to the position of the uterus and size. 2. Both ovaries are seen and appear normal. 3. No fluid in the cul-de-sac. Dictated by: Diego Hidalgo MD 10/10/2024 10:13 Diego Hidalgo MD in OV 10/10/2024 10:13
== END 2024-10-10 23:59 | disposition home or self-care (01) ==
LOC: RAD 08:53
PROVIDERS: PCP Nurse Practitioner Family; Visit Provider Obstetrics & Gynecology
DX: R10.2 Pelvic and perineal pain (principal); Z87.42 Personal history of other diseases of the female genital tract
CPT/HCPCS: 76830

== ENCOUNTER 2024-10-18 07:57 | Outpatient (CLI) | payer BC, SELFPAY ==
--- NOTE | 2024-10-18 07:58 | MM_ITS ---
PROCEDURE INFORMATION: Exam: MG Bilateral Screening 3D Mammography Exam date and time: 10/18/2024 8:07 AM Age: 49 years old Clinical indication: Screening examination. TECHNIQUE: Imaging protocol: Bilateral Screening tomosynthesis and 2D mammography including computer-aided detection (CAD) when performed. COMPARISON: 1. MG MM DIG SCREENING MAMM BI W/CAD 09/29/2023 8:27 AM 2. MG MM DIG SCREENING MAMM BI W/CAD 07/07/2022 2:47 PM FINDINGS: MAMMOGRAPHY: Breast composition: There are scattered areas of fibroglandular density. Mass: None. Architectural distortion: None. Calcifications: No suspicious calcifications. Asymmetric density: None. Skin thickening: None. Axillary adenopathy: None. IMPRESSION: No mammographic evidence of malignancy. Annual screening is recommended unless otherwise clinically indicated. ASSESSMENT: BI-RADS Category 1: Negative.
== END 2024-10-18 23:59 | disposition home or self-care (01) ==
LOC: RAD 07:58
PROVIDERS: PCP Nurse Practitioner Family; Visit Provider Obstetrics & Gynecology
DX: Z12.31 Encounter for screening mammogram for malignant neoplasm of breast (principal)
CPT/HCPCS: 77063; 77067

== ENCOUNTER 2024-11-03 13:34 | Emergency (ER) | payer BC, SELFPAY ==
[2024-11-03 13:48] VITALS: BP 140/93; PULSE 103; RESP 18; TEMP 36.9; O2SAT 100; BMI 34.0
--- NOTE | 2024-11-03 13:58 | HMH.EDGENADL ---
Discharge Plan Disposition Patient Disposition: Home, Self-Care Condition: Good Prescriptions Prescriptions: New norethindrone acetate 5 mg tablet 5 mg PO .three times a day 7 Days Qty: 30 0RF ketorolac 10 mg tablet 10 mg PO Q8H 5 Days Qty: 15 0RF cyclobenzaprine 10 mg tablet 10 mg PO BID Qty: 60 0RF No Action albuterol sulfate 90 mcg/actuation HFA aerosol inhaler 2 puff inhalation Q4-6H PRN (Reason: bronchospasm) Qty: 8.5 5RF allopurinol 100 mg tablet 100 mg PO DAILY Qty: 90 3RF bupropion HCl [Wellbutrin XL] 300 mg tablet extended release 24 hr 300 mg PO DAILY Qty: 90 3RF lisinopril 20 mg tablet 20 mg PO DAILY Qty: 90 3RF dextroamphetamine-amphetamine [Adderall XR] 20 mg capsule,extended release 24hr 20 mg PO DAILY Qty: 30 0RF Referrals Follow up/Referrals: Teresa Dietz DO [Staff Physician] - See instructions Rosa Camacho, SOY [Primary Care Provider] - See instructions Clinical Impressions Clinical Impression: Vaginal bleeding, Dysfunctional uterine bleeding Uterine fibroid Qualifiers: Uterine leiomyoma location: unspecified location Qualified Code(s): D25.9 - Leiomyoma of uterus, unspecified Menorrhagia Qualifiers: Menorrhagia type: with regular cycle Qualified Code(s): N92.0 - Excessive and frequent menstruation with regular cycle Instructions Patient Instructions: DI for Vaginal Bleeding Print Language Print Language: Armenian Discharge ED Provider: Bhupinder Haji General Adult HPI <Milagros Mckeon (ED), PROFESSOR OF PRACTICE - Last Filed: 11/03/24 16:25> General Chief complaint: Vaginal Bleeding Stated complaint: heavy vaginal bleeding Time Seen by Provider: 11/03/24 13:43 Mode of Arrival: Ambulatory Source of Information: Patient Limitations: No Limitations Description of Symptoms (Recalled from ER Triage Doc. by RN): Patient reports that she is on her menstrual cycle and began having heavy vaginal bleeding this morning. Patient is saturating a super plus tampon hourly and reports lightheadedness and dizziness for several days. History of Present Illness HPI narrative: This is a 49-year-old female who presents to the ED today for complaint of heavy menstrual bleeding. She started her period on Tuesday but heavy bleeding started this morning. She is bleeding through super plus tampons 1 [address] She [address] Dr[address] James and she advised her to come to the emergency department. She does have history of fibroids she had a vaginal ultrasound 2 weeks ago that showed fibroids. They have scheduled a hysterectomy for January 07. Patient is having dizziness and feeling fatigued. Patient has long history of heavy periods but today was abnormal for her to bleed through every hour. She has been on Oriahnn to help control her fibroids. She was recently taken off the Edison due to her taking it too long without a bone scan. Related Data Previous Rx's ?Medication ?Instructions ?Recorded allopurinol 100 mg tablet 100 mg PO DAILY #90 tabs 12/07/23 bupropion HCl 300 mg 24 hr tablet, 300 mg PO DAILY #90 tabs 12/07/23 extended release (Wellbutrin XL) lisinopril 20 mg tablet 20 mg PO DAILY #90 tabs 12/07/23 albuterol sulfate 90 mcg/actuation 2 puff inhalation Q4-6H PRN 05/22/24 aerosol inhaler bronchospasm #8.5 grams dextroamphetamine-amphetamine ER 20 mg PO DAILY #30 caps 10/12/24 20 mg 24hr capsule,extend release (Adderall XR) cyclobenzaprine 10 mg tablet 10 mg PO BID #60 tabs 11/03/24 ketorolac 10 mg tablet 10 mg PO Q8H 5 days #15 tabs 11/03/24 norethindrone acetate 5 mg tablet 5 mg PO .three times a day 7 days 11/03/24 #30 tabs Allergies Allergy/AdvReac Type Severity Reaction Status Date / Time erythromycin base AdvReac Mild Vomiting Verified 11/03/24 15:03 [facility] <Milagros Mckeon (ED), PROFESSOR OF PRACTICE - Last Filed: 11/03/24 16:25> [facility] Disclaimer: The information contained in this section may have been updated after the patient was seen, as this information can be updated by other users. Medical History Poison pillo dermatitis Eye twitch right Dizziness Headache Skin lesion of chest wall Depression Acute pain of right foot Enlarged uterus Uterine fibroid Obesity (BMI 35.0-39.9 without comorbidity) Dysmenorrhea Menorrhagia History of PCOS Tension headache Surgical History History of removal of neck cyst History of wisdom tooth extraction, class I edentulism History of cholecystectomy History of section, classical Family History Other No significant family history Social History Smoking Status: Never smoker alcohol intake: never substance use type: other current occupational status: other Travel in the last 8 weeks: None household members: spouse housing: house current occupation: [employer] caffeine: Yes Have you lived/traveled outside US in past 30 days?: No Contact w/someone who lives/traveled outside US past 30 days?: No Exposure to someone with infectious disease in past 14 days?: No Do you have a fever (greater than 100.4 F or 38 C)?: No Have you tested positive for COVID-19: No Exposed to someone with COVID-19 in past 14 days?: No Do you have a sore throat?: No Do you have a cough?: No Do you have any weakness?: No Do you have any diarrhea?: No Are you experiencing any unusual bleeding?: No Do you have any muscle aches/pain?: No Do you have any abdominal pain?: No Are you experiencing loss of taste or smell?: No Other Medical History Have you received the Flu Vaccine for this season: Yes Have you received the Pneumonia Vaccine: No <Milagros Mckeon (ED), PROFESSOR OF PRACTICE - Last Filed: 11/03/24 16:25> ROS Obtained: Yes Systems reviewed as appropriate & no additional complaints except as documented Constitutional Constitutional: Reports as per HPI Physical Exam <Milagros Mckeon (ED), PROFESSOR OF PRACTICE - Last Filed: 11/03/24 16:25> General General appearance: alert and other (Fatigued) Head Head exam: atraumatic and normocephalic Eye Eye exam: Present PERRL and EOMI ENT ENT exam: Present mucous membranes moist Neck Neck exam: Present normal inspection and full ROM Respiratory Respiratory exam: Present normal lung sounds bilaterally Cardiovascular Cardiovascular exam: Present regular rate, normal rhythm, normal heart sounds, +S1 and +S2 Abdominal Exam Abdominal exam: Present soft and normal bowel sounds Extremities Exam Extremities exam: Present full ROM and normal capillary refill Neurological Exam Neurological exam: Present alert, oriented X3 and normal gait Skin Skin exam: Present warm, dry and intact Medical Decision Making <Mliagros Mckeon (ED), PROFESSOR OF PRACTICE - Last Filed: 11/03/24 16:25> Medical Records Screening: Per USPSTF and CDC recommendations, given the prevalence of disease in our region, it is our hospital?s policy to screen for HIV and viral Hepatitis for all patients aged 18 and over and those with ongoing risk factors. Yves Inquiry Pt receiving controlled substance: No Yves was queried for this patient: No Vital Signs: 11/03/24 13:48 11/03/24 14:59 11/03/24 15:01 Temperature 98.4 F Temperature Source Oral Pulse Rate 76 80 Pulse Rate [Left] 103 H Respiratory Rate 18 Blood Pressure 114/77 130/75 Blood Pressure [Left Arm] 140/93 H Blood Pressure Mean [Left Arm] 108 Blood Pressure Source [Left Arm] Automatic Cuff Blood Pressure Position [Left Arm] Sitting 02 Sat by Pulse Oximetry 100 99 98 Oxygen Delivery Method Room Air Room Air Room Air 11/03/24 15:30 11/03/24 16:00 11/03/24 16:33 Temperature 98.4 F Temperature Source Pulse Rate 78 78 72 Pulse Rate [Left] Respiratory Rate 16 Blood Pressure 112/75 102/74 L 102/74 L Blood Pressure [Left Arm] Blood Pressure Mean [Left Arm] Blood Pressure Source [Left Arm] Blood Pressure Position [Left Arm] 02 Sat by Pulse Oximetry 96 97 Oxygen Delivery Method Room Air Room Air Lab Data Lab Results 11/03/24 14:05: WBC 10.6, RBC 5.14, Hgb 14.6, Hct 41.9, MCV 81.5, MCH 28.4, MCHC 34.8, RDW 13.3, Plt Count 361, MPV 10.0, Neut % (Auto) 73.2, Lymph % (Auto) 17.4, Pocahontas % (Auto) 7.9, Eos % (Auto) 0.8, Baso % (Auto) 0.4, Neut # (Auto) 7.8, Lymph # (Auto) 1.9, Pocahontas # (Auto) 0.8, Eos # (Auto) 0.1, Baso # (Auto) 0.0, Sodium 137, Potassium 3.4 L, Chloride 103, Carbon Dioxide 23, Anion Gap 14.4, BUN 20 H, Creatinine 0.80, Estimated Creat Clear 122, Estimated GFR 77, Est GFR ( Amer) 93, Glucose 105 H, Calcium 9.7, Magnesium 1.7, Total Bilirubin 0.9, AST 38 H, ALT 40, Alkaline Phosphatase 68, Total Protein 7.6, Albumin 4.7, Globulin 2.9, Albumin/Globulin Ratio 1.6, Serum HCG, Qual Negative, Blood Type A Positive, Antibody Screen Negative 11/03/24 14:58: Urine Color Yellow, Urine Appearance Clear, Urine pH 5.5, Ur Specific Cooper >= 1.030, Urine Protein Negative, Urine Glucose (UA) Negative, Urine Ketones Trace, Urine Blood 2+ A, Urine Nitrate Negative, Urine Bilirubin Negative, Urine Urobilinogen 0.2, Ur Leukocyte Esterase Negative, Urine RBC 20-50, Urine WBC Occasional, Ur Squamous Epith Cells Occasional, Urine Bacteria Trace, Urine Mucus Trace 11/03/24 14:05 11/03/24 14:05 Orders (Tests/Meds): ED MEDICATIONS Discontinued Medications Generic Name Dose Route Start Last Admin Trade Name Freq PRN Reason Stop Dose Admin Acetaminophen 1,000 mg 11/03/24 14:59 11/03/24 15:59 Acetaminophen 1,000mg/100ml Vial IV 11/03/24 15:00 1,000 mg ONCE ONE Administration Sodium Chloride 1,000 mls @ 999 mls/hr 11/03/24 13:48 11/03/24 14:10 Sod Chlor 0.9% 1000ml Bag IV 11/03/24 14:48 999 mls/hr .Q1H1M ONE Administration Ketorolac Tromethamine 30 mg 11/03/24 13:56 11/03/24 14:10 Ketorolac 30mg/Ml Vial IV 11/03/24 13:57 30 mg ONCE ONE Administration Ondansetron HCl 4 mg 11/03/24 14:59 11/03/24 15:56 Ondansetron 4mg/2ml Vial IV 11/03/24 15:00 4 mg ONCE ONE Administration Orphenadrine Citrate 60 mg 11/03/24 14:59 11/03/24 15:54 Orphenadrine Citrate 60mg/2ml Vial IV 11/03/24 15:00 60 mg ONCE ONE Administration Potassium Chloride 40 meq 11/03/24 14:59 11/03/24 16:00 Potassium Chloride 20meq Tab PO 11/03/24 15:00 40 meq ONCE ONE Administration ORDERS Category Date Time Status Type and Screen Stat BBK 11/03/24 14:05 Completed CBC [Complete Blood Count Auto Diff] Stat Lab 11/03/24 14:05 Completed Comprehensive Metabolic Panel Stat Lab 11/03/24 14:05 Completed HCG Qualitative, Serum Stat Lab 11/03/24 14:05 Completed Magnesium Stat Lab 11/03/24 14:05 Completed Urinalysis-Acute [Urinalysis and Microscopic] Stat Lab 11/03/24 14:58 Completed Medical Decision Narrative: Insert review patient is a 49-year-old female presenting to the emergency department for evaluation of heavy menstrual bleeding. She is saturating super plus tampons 1 an hour since this morning. She started her period on Tuesday but the heavy bleeding started this morning. She started to feel lightheaded. She talked with Dr. James and she suggested coming into the ER today get her blood checked.. Patient is hemodynamically stable and nontoxic-appearing upon arrival, afebrile. Differential diagnosis includes dysmenorrhea, fibroids, cysts, among other things. Workup will be conducted with labs including a type and screen. Patient had an ultrasound [address] James and it showed fibroids. She has been on or on 2 with her fibroids but was taken off it recently due to its damage to the bones. She is having a hysterectomy on January [address] James.. Initial inventions include normal saline bolus, Toradol for pain. Initial workup reviewed by me potassium was 3.4 and treated with oral potassium and Zofran. Patient also given a muscle relaxer to help with her cramping. She does feel improved. I did consider imaging but she has had imaging recently with Dr. James. She has already been worked up for fibroids and is having surgery for this.. Patient will be discharged with Toradol for pain and cramps, progestin directed by Dr. James. Patient will follow-up with Dr. James on Tuesday. She will return for labs if she worsens with bleeding. Patient stable for discharge home. <Bhupinder Haji MD - Last Filed: 11/04/24 17:31> Vital Signs: 11/03/24 13:48 11/03/24 14:59 11/03/24 15:01 Temperature 98.4 F Temperature Source Oral Pulse Rate 76 80 Pulse Rate [Left] 103 H Respiratory Rate 18 Blood Pressure 114/77 130/75 Blood Pressure [Left Arm] 140/93 H Blood Pressure Mean [Left Arm] 108 Blood Pressure Source [Left Arm] Automatic Cuff Blood Pressure Position [Left Arm] Sitting 02 Sat by Pulse Oximetry 100 99 98 Oxygen Delivery Method Room Air Room Air Room Air 11/03/24 15:30 11/03/24 16:00 11/03/24 16:33 Temperature 98.4 F Temperature Source Pulse Rate 78 78 72 Pulse Rate [Left] Respiratory Rate 16 Blood Pressure 112/75 102/74 L 102/74 L Blood Pressure [Left Arm] Blood Pressure Mean [Left Arm] Blood Pressure Source [Left Arm] Blood Pressure Position [Left Arm] 02 Sat by Pulse Oximetry 96 97 Oxygen Delivery Method Room Air Room Air Lab Data Lab Results 11/03/24 14:05: WBC 10.6, RBC 5.14, Hgb 14.6, Hct 41.9, MCV 81.5, MCH 28.4, MCHC 34.8, RDW 13.3, Plt Count 361, MPV 10.0, Neut % (Auto) 73.2, Lymph % (Auto) 17.4, Pocahontas % (Auto) 7.9, Eos % (Auto) 0.8, Baso % (Auto) 0.4, Neut # (Auto) 7.8, Lymph # (Auto) 1.9, [place] # (Auto) 0.8, Eos # (Auto) 0.1, Baso # (Auto) 0.0, Sodium 137, Potassium 3.4 L, Chloride 103, Carbon Dioxide 23, Anion Gap 14.4, BUN 20 H, Creatinine 0.80, Estimated Creat Clear 122, Estimated GFR 77, Est GFR ( Amer) 93, Glucose 105 H, Calcium 9.7, Magnesium 1.7, Total Bilirubin 0.9, AST 38 H, ALT 40, Alkaline Phosphatase 68, Total Protein 7.6, Albumin 4.7, Globulin 2.9, Albumin/Globulin Ratio 1.6, Serum HCG, Qual Negative, Blood Type A Positive, Antibody Screen Negative 11/03/24 14:58: Urine Color Yellow, Urine Appearance Clear, Urine pH 5.5, Ur Specific Cooper >= 1.030, Urine Protein Negative, Urine Glucose (UA) Negative, Urine Ketones Trace, Urine Blood 2+ A, Urine Nitrate Negative, Urine Bilirubin Negative, Urine Urobilinogen 0.2, Ur Leukocyte Esterase Negative, Urine RBC 20-50, Urine WBC Occasional, Ur Squamous Epith Cells Occasional, Urine Bacteria Trace, Urine Mucus Trace Orders (Tests/Meds): ED MEDICATIONS Discontinued Medications Generic Name Dose Route Start Last Admin Trade Name Freq PRN Reason Stop Dose Admin Acetaminophen 1,000 mg 11/03/24 14:59 11/03/24 15:59 Acetaminophen 1,000mg/100ml Vial IV 11/03/24 15:00 1,000 mg ONCE ONE Administration Sodium Chloride 1,000 mls @ 999 mls/hr 11/03/24 13:48 11/03/24 14:10 Sod Chlor 0.9% 1000ml Bag IV 11/03/24 14:48 999 mls/hr .Q1H1M ONE Administration Ketorolac Tromethamine 30 mg 11/03/24 13:56 11/03/24 14:10 Ketorolac 30mg/Ml Vial IV 11/03/24 13:57 30 mg ONCE ONE Administration Ondansetron HCl 4 mg 11/03/24 14:59 11/03/24 15:56 Ondansetron 4mg/2ml Vial IV 11/03/24 15:00 4 mg ONCE ONE Administration Orphenadrine Citrate 60 mg 11/03/24 14:59 11/03/24 15:54 Orphenadrine Citrate 60mg/2ml Vial IV 11/03/24 15:00 60 mg ONCE ONE Administration Potassium Chloride 40 meq 11/03/24 14:59 11/03/24 16:00 Potassium Chloride 20meq Tab PO 11/03/24 15:00 40 meq ONCE ONE Administration ORDERS Category Date Time Status Type and Screen Stat BBK 11/03/24 14:05 Completed CBC [Complete Blood Count Auto Diff] Stat Lab 11/03/24 14:05 Completed Comprehensive Metabolic Panel Stat Lab 11/03/24 14:05 Completed HCG Qualitative, Serum Stat Lab 11/03/24 14:05 Completed Magnesium Stat Lab 11/03/24 14:05 Completed Urinalysis-Acute [Urinalysis and Microscopic] Stat Lab 11/03/24 14:58 Completed Medical Decision Narrative: Insert review patient is a 49-year-old female presenting to the emergency department for evaluation of heavy menstrual bleeding. She is saturating super plus tampons 1 an hour since this morning. She started her period on Tuesday but the heavy bleeding started this morning. She started to feel lightheaded. She talked with Dr. James and she suggested coming into the ER today get her blood checked.. Patient is hemodynamically stable and nontoxic-appearing upon arrival, afebrile. Differential diagnosis includes dysmenorrhea, fibroids, cysts, among other things. Workup will be conducted with labs including a type and screen. Patient had an ultrasound [address] James and it showed fibroids. She has been on or on 2 with her fibroids but was taken off it recently due to its damage to the bones. She is having a hysterectomy on January [address] James.. Initial inventions include normal saline bolus, Toradol for pain. Initial workup reviewed by me potassium was 3.4 and treated with oral potassium and Zofran. Patient also given a muscle relaxer to help with her cramping. She does feel improved. I did consider imaging but she has had imaging recently with Dr. James. She has already been worked up for fibroids and is having surgery for this.. Patient will be discharged with Toradol for pain and cramps, progestin directed by Dr. James. Patient will follow-up with Dr. James on Tuesday. She will return for labs if she worsens with bleeding. Patient stable for discharge home. I was consulted by the LINO, and we discussed the complexity of the problems being addressed. I approved the treatment and management plan for this patient's care in the Emergency Department, thus performing a substantive portion of the medical decision making. Bhupinder Haji MD Critical Care <Milagros Mckeon (ED), PROFESSOR OF PRACTICE - Last Filed: 11/03/24 16:25> Critical Care Time Critical Care Time: No
[2024-11-03] MEDS: 0.9 % SODIUM CHLORIDE 1000ML 1,000 ML 999 ML IV (14:10)
[2024-11-03] MEDS: KETOROLAC 30MG/ML VIAL 30 MG IV (14:10)
[2024-11-03 14:25] LABS: Albumin Level 4.7 g/dl (3.5-5.0); Chloride 103 mmol/L (98-107); Potassium 3.4 mmoL/L (3.5-5.1); Sodium 137 mmol/L (136-145)
--- NOTE | 2024-11-03 14:27 | PC.NURSE ---
ROUNDED ON PT, CALL LIGHT WITHIN REACH. NO NEEDS AT THIS TIME
[2024-11-03 14:28] LABS: Alanine Aminotransferase 40 U/L (12-78); Albumin/Globulin Ratio 1.6 (1.1-1.8); Alkaline Phosphatase 68 U/L (38-126); Anion Gap 14.4 mEq/L (5-15); Aspartate Amino Transferase 38 U/L (14-36); Bilirubin,Total 0.9 mg/dl (0.2-1.3); Blood Urea Nitrogen 20 mg/dl (7-17); Calcium 9.7 mg/dl (8.4-10.2); Carbon Dioxide 23 mmol/L (22.0-30.0); Creatinine Clearance Estimated 122 mL/min (50-200); Estimated Glomerular Filt Rate 77 ml/min (>60); GFR (African American) 93 ML/MIN (>60); Globulin 2.9 g/dL (1.3-3.2); Glucose 105 mg/dl (74-100); Magnesium 1.7 mg/dl (1.6-2.3); Total Protein,Serum 7.6 g/dl (6.3-8.2)
[2024-11-03 14:31] LABS: HCG Qualitative, Serum Negative (Negative)
--- NOTE | 2024-11-03 14:39 | PC.NURSE ---
rounded on the pt. the pt voices that she does not need anything at this time. call light is within reach of the pt.
[2024-11-03 14:58] LABS: Basophils % 0.4 % (0.1-2.0); Eosinophils # 0.1 K/mm3 (0.0-0.4); Eosinophils % 0.8 % (0.1-12.0); Hematocrit 41.9 % (37.0-47.0); Hemoglobin 14.6 g/dL (12.2-16.2); Lymphocytes # 1.9 K/mm3 (0.7-4.5); Lymphocytes % 17.4 % (10-50); Mean Corpuscular HGB Conc 34.8 g/dL (31.8-35.4); Mean Corpuscular Hemoglobin 28.4 pg (27.0-31.2); Mean Corpuscular Volume 81.5 fl (81-99); Monocytes # 0.8 K/mm3 (0.1-1.0); Monocytes % 7.9 % (1.7-9.3); Neutrophils # 7.8 K/mm3 (1.8-7.8); Neutrophils % 73.2 % (37.0-80.0); Platelet Count 361 K/mm3 (142-424); Red Blood Count 5.14 M/mm3 (4.20-5.40); Red Cell Distribution Width 13.3 % (11.5-17.5); White Blood Count 10.6 K/mm3 (4.8-10.8)
[2024-11-03 14:59] VITALS: BP 114/77; PULSE 76; O2SAT 99
[2024-11-03 15:01] VITALS: BP 130/75; PULSE 80; O2SAT 98
[2024-11-03 15:03] LABS: Microscopic, Urine URINE MICROSCOPIC (MICROSCOPIC)
[2024-11-03 15:05] LABS: Appearance,Urine CLEAR (Clear); Bilirubin,Urine Negative (Negative); Blood, Urine 2+ (Negative); Color,Urine YELLOW (Yellow); Glucose,Urine (UA) Negative (Negative); Ketones,Urine TRACE (Negative); Leukocyte Esterase,Urine Negative (Negative); Nitrate,Urine Negative (Negative); PH,Urine 5.5 (5.0-8.5); Protein,Urine Negative (Negative); Specific Gravity, Urine >= 1.030 (1.005-1.030); Urobilinogen,Urine 0.2 EU/dl (0.2)
[2024-11-03 15:30] VITALS: BP 112/75; PULSE 78; O2SAT 96
[2024-11-03 15:42] LABS: Bacteria,Urine Trace /lpf; Mucus,Urine Trace /lpf; RBC,Urine 20-50 #/hpf (0-3); Squamous Epithelial Cell,Urine Occasional #/hpf (0-5); WBC,Urine Occasional #/hpf (0-3)
[2024-11-03] MEDS: ORPHENADRINE CITRATE 60MG/2ML VIAL 60 MG IV (15:54)
[2024-11-03] MEDS: ONDANSETRON 4MG/2ML VIAL 4 MG IV (15:56)
[2024-11-03] MEDS: ACETAMINOPHEN 1,000MG/100ML VIAL 1000 MG IV (15:59)
[2024-11-03 16:00] VITALS: BP 102/74; PULSE 78; O2SAT 97
[2024-11-03] MEDS: POTASSIUM CHLORIDE 20MEQ TAB 40 MEQ PO (16:00)
[2024-11-03 16:33] VITALS: BP 102/74; PULSE 72; RESP 16; TEMP 36.9
--- NOTE | 2024-11-03 16:35 | PC.NURSE ---
1405- PIV placed in RAC per policy, patient tolerated procedure well, labs collected, labeled at bedside by phlebotomy. 1415- Toradol and NS administered per order. 1500- Urinalysis collected, labeled at bedside, sent for analysis. Pain 12/20, ED provider notified. Patient expresses no other needs at this time. A & O x 4. 1554- Norflex administered per order. 1556- Zofran administered per order. 1559- Tylenol adminstered per order. 1600- Potassium administered per order. Hourly rounding complete. Patient expresses no needs at this time. A & O x 4.
== END 2024-11-03 16:34 | disposition home or self-care (01) ==
PROVIDERS: Nurse Practitioner; Emergency Provider Emergency Medicine; PCP Nurse Practitioner Family
DX: D25.9 Leiomyoma of uterus, unspecified (principal); N93.8 Other specified abnormal uterine and vaginal bleeding; N92.0 Excessive and frequent menstruation with regular cycle; N93.9 Abnormal uterine and vaginal bleeding, unspecified; R42 Dizziness and giddiness
CPT/HCPCS: 80053; 81001; 83735; 84703; 85025; 86850; 96361; 96374; 96375; 99283; J0131; J1885; J2360; J2405; J7030

== ENCOUNTER 2024-11-06 14:30 | Outpatient (CLI) | payer BC, SELFPAY ==
[2024-11-06 14:52] LABS: Hematocrit 38.3 % (37.0-47.0); Hemoglobin 13.1 g/dL (12.2-16.2)
== END 2024-11-06 23:59 | disposition home or self-care (01) ==
LOC: LAB 14:30
PROVIDERS: PCP Nurse Practitioner Family; Visit Provider Obstetrics & Gynecology
DX: N93.8 Other specified abnormal uterine and vaginal bleeding (principal)
CPT/HCPCS: 36415; 85014; 85018

== ENCOUNTER 2024-12-06 07:17 | Outpatient (CLI) | payer BC, SELFPAY ==
[2024-12-06 08:38] LABS: Chol/HDL Ratio 2.7 (1-3.5); Cholesterol 155 mg/dl (140-200); HDL Cholesterol 57 mg/dl (40-60); Triglycerides 59 mg/dl (30-150); Uric Acid 5.1 mg/dl (2.5-6.2); VLDL Cholesterol 12 mg/dL (0-40)
[2024-12-06 08:49] LABS: Direct LDL Cholesterol 75.48 mg/dL (100-129)
[2024-12-06 08:55] LABS: 25-OH Vitamin D, Total 32.2 ng/mL (30-100)
[2024-12-06 08:56] LABS: Free T4 (Free Thyroxine) 1.19 ng/dl (0.78-2.19)
[2024-12-06 08:58] LABS: Iron 122 ug/dL (37-170)
[2024-12-06 09:07] LABS: Total Iron Binding Capacity 478 ug/dL (265-497)
[2024-12-06 09:10] LABS: Thyroid Stimulating Hormone 2.33 uIU/mL (0.465-4.68)
[2024-12-06 09:24] LABS: HIV Combo NEGATIVE (Negative)
[2024-12-06 09:29] LABS: Vitamin B12 526 pg/mL (239-931)
[2024-12-06 09:32] LABS: Hepatitis C Ab Qual. W/ RFX NEGATIVE (Negative)
[2024-12-06 09:34] LABS: Ferritin 11.5 ng/ml (6.24-137)
== END 2024-12-06 23:59 | disposition home or self-care (01) ==
LOC: LAB 07:18
PROVIDERS: PCP Nurse Practitioner Family; Visit Provider Nurse Practitioner Family
DX: R53.83 Other fatigue (principal); M10.9 Gout, unspecified; Z13.220 Encounter for screening for lipoid disorders; Z11.59 Encounter for screening for other viral diseases; Z13.1 Encounter for screening for diabetes mellitus; Z11.4 Encounter for screening for human immunodeficiency virus [HIV]
CPT/HCPCS: 36415; 80061; 82306; 82607; 82728; 83036; 83540; 83550; 84439; 84443; 84550; 86803; 87389

== ENCOUNTER 2025-01-02 14:40 | Outpatient (CLI) | payer BC, SELFPAY ==
[2025-01-02 14:41] VITALS: BMI 35.3
--- NOTE | 2025-01-02 15:00 | ECG_ITS ---
APPROVED REPORT Exam: Resting ECG HR:63 bpm ECG Measurements Heart Rate [address] 161 P 68 QRSd 93 QRS 64 QT 395 T 50 QTc 402 Conclusion SINUS RHYTHM NORMAL ECG UNCONFIRMED REPORT Electronically signed by : Kaiser Wall MD 01/03/2025 08:16:16
[2025-01-02 15:16] LABS: Basophils # 0.1 K/mm3 (0-0.2); Eosinophils # 0.2 Kmm3 (0.0-0.4); Eosinophils % 2.8 % (0.1-12.0); Hematocrit 36.3 % (37.0-47.0); Hemoglobin 12.3 g/dL (12.2-16.2); Lymphocytes # 1.9 K/mm3 (0.7-4.5); Mean Corpuscular HGB Conc 33.9 g/dL (31.8-35.4); Mean Corpuscular Hemoglobin 28.7 pg (27.0-31.2); Mean Corpuscular Volume 84.6 fl (81-99); Mean Platelet Volume 9.5 fl (7.4-10.4); Monocytes # 0.7 K/mm3 (0.1-1.0); Monocytes % 8.5 % (1.7-9.3); Neutrophils # 5.1 K/mm3 (1.8-7.8); Neutrophils % 63.3 % (37.0-80.0); Nucleated Red Blood Cells # 0 10^3/uL; Nucleated Red Blood Cells % 0 %; Platelet Count 423 K/mm3 (142-424); Red Blood Count 4.29 M/mm3 (4.20-5.40); White Blood Count 8.1 K/mm3 (4.8-10.8)
[2025-01-02 15:35] LABS: HCG Qualitative, Serum Negative (Negative)
[2025-01-02 20:07] LABS: Chloride 107 mmol/L (98-107); Sodium 139 mmol/L (136-145)
[2025-01-02 20:10] LABS: Alanine Aminotransferase 30 U/L (12-78); Albumin/Globulin Ratio 1.5 (1.1-1.8); Alkaline Phosphatase 49 U/L (38-126); Aspartate Amino Transferase 34 U/L (14-36); Blood Urea Nitrogen 15 mg/dl (7-17); Carbon Dioxide 22 mmol/L (22.0-30.0); Creatinine Clearance Estimated 101 mL/min (50-200); Estimated Glomerular Filt Rate 59 ml/min (>60); GFR (African American) 72 ML/MIN (>60); Globulin 2.6 g/dL (1.3-3.2); Total Protein,Serum 6.6 g/dl (6.3-8.2)
[2025-01-02 20:11] LABS: Glucose 98 mg/dl (74-100)
[2025-01-02 20:14] LABS: Bilirubin,Total 0.1 mg/dl (0.2-1.3)
== END 2025-01-02 23:59 | disposition home or self-care (01) ==
LOC: PREOP 14:40
PROVIDERS: PCP Nurse Practitioner Family; Visit Provider Obstetrics & Gynecology
DX: Z01.810 Encounter for preprocedural cardiovascular examination (principal); Z01.812 Encounter for preprocedural laboratory examination
CPT/HCPCS: 80053; 84703; 85025; 93005

== ENCOUNTER 2025-01-07 06:16 | Inpatient (IN) | payer BC, SELFPAY ==
[2025-01-03 09:41] VITALS: BMI 34.3
[2025-01-07] VITALS (22 sets, daily range): BP systolic 105–152; BP diastolic 54–82; PULSE 40–78; RESP 15–18; TEMP 36.4–37.3; O2SAT 95–100
[2025-01-07] MEDS: ACETAMINOPHEN 500MG TAB 1000 MG PO ×3 (06:20→18:48)
[2025-01-07] MEDS: CELECOXIB 100MG CAPSULE 400 MG PO (06:21)
[2025-01-07] MEDS: GABAPENTIN 600MG TABLET 600 MG PO (06:21)
[2025-01-07] MEDS: LACTATED RINGERS 1000ML 1,000 ML 25 ML IV (06:45)
--- NOTE | 2025-01-07 06:59 | EXP.ANES.CKL ---
[facility] Disclaimer: The information contained in this section may have been updated after the patient was seen, as this information can be updated by other users. Medical History Asthma Abnormal uterine bleeding Gout flare Sinusitis Poison pillo dermatitis Eye twitch Dizziness Headache Skin lesion of chest wall Depression Acute pain of right foot Enlarged uterus Uterine fibroid Obesity (BMI 35.0-39.9 without comorbidity) Dysmenorrhea Menorrhagia History of PCOS Tension headache Surgical History History of removal of neck cyst History of wisdom tooth extraction, class I edentulism History of cholecystectomy History of section, classical Family History Other No significant family history Social History (Updated 01/07/25 @ 06:27 by Daly Arango RN) Smoking Status: Never smoker alcohol intake: never substance use type: other current occupational status: employed Travel in the last 8 weeks: None household members: spouse housing: house current occupation: [employer] caffeine: Yes Have you lived/traveled outside US in past 30 days?: No Contact w/someone who lives/traveled outside US past 30 days?: No Exposure to someone with infectious disease in past 14 days?: No Do you have a fever (greater than 100.4 F or 38 C)?: No Have you tested positive for COVID-19: No Exposed to someone with COVID-19 in past 14 days?: No Do you have a sore throat?: No Do you have a cough?: No Do you have any weakness?: No Are you experiencing any nausea/vomitting?: No Do you have any diarrhea?: No Are you experiencing any unusual bleeding?: No Do you have any muscle aches/pain?: No Do you have any abdominal pain?: No Are you experiencing loss of taste or smell?: No [employer] Anesthesia Checklist Patient Identification Patient Identification: Arm Band and Verbal (Name & ) Structural Data Admitted From: Home Planned Operative Procedure/s: [facility] Consent for Planned Operative Procedure(s) Verified: Yes Verified Documents: Surgical Consent NPO Status Verified Time NPO: 00:00 Chart Verification Results Verified: CBC, BMP and ECG Additional verifications Patient : No Anesthesia Reactions: No Hx Blood Transfusions: No Blood Transfusion Reaction: No Cephalosporin Allergy: No Airway Assessment Mallampati Score:: Class I C-Spine Mobility Assessed: Yes TMJ Mobility Assessed: No Dentition: Good Dentition Neurological Assessment Level of Consciousness: Awake, Alert and Appropriate Hx Seizures: No Numbness or tingling in extremities: No Anesthesia Plan Anesthesia Risk discussed: Yes Anesthesia Plan: Verified ASA Class: II Anesthesia Type: General
--- NOTE | 2025-01-07 07:26 | EXP.HP ---
History of Present Illness *Admission Date: 01/07/25 *Reason for visit:: Scheduled hysterectomy *History of present illness: Mrs Rosa Blackman is a 49 yo [id number] who presents to [facility] for scheduled surgery. She complains of heavy, painful irregular uterine bleeding. She was taking Oriahnn for heavy menstrual bleeding with fibroid uterus. She started Oriahnn July 2022. Her last Oriahnn dose was 09/30/24. Oriahnn is limited to 24 months. She was feeling great until she stopped Oriahnn. From October to November she bled for a month with two weeks of very heavy bleeding. In December she had a heavy period that lasted about one week, no bleeding for two days and then bleeding again for 4 days. She stopped bleeding today. She is eating healthier, running every day and lifting weights twice weekly. Last pap smear 09/15/23 - negative. Pelvic ultrasound 10/10/24 demonstrated uterus measuring 10.9 cm x 8.5 cm x 7.1 cm enlarged, retroflexed and axial with a combined endometrial thickness of 9.3mm. Difficult exam. There are least 6 fibroids within the uterus. Fibroid 1. 3.73 cm, Fibroid 2. 2.56 cm, Fibroid 3. 1.41 cm, Fibroid 4. 3.74 cm, Fibroid 5. 3.35 cm, Fibroid 6. 2.96 cm. Surgical history significant for x 2. She desires definitive surgical management with hysterectomy. [facility] Disclaimer: The information contained in this section may have been updated after the patient was seen, as this information can be updated by other users. Medical History Asthma Abnormal uterine bleeding Gout flare Sinusitis Poison pillo dermatitis Eye twitch Dizziness Headache Skin lesion of chest wall Depression Acute pain of right foot Enlarged uterus Uterine fibroid Obesity (BMI 35.0-39.9 without comorbidity) Dysmenorrhea Menorrhagia History of PCOS Tension headache Surgical History History of removal of neck cyst History of wisdom tooth extraction, class I edentulism History of cholecystectomy History of section, classical Family History Other No significant family history Social History (Updated 01/07/25 @ 06:27 by Daly Arango RN) Smoking Status: Never smoker alcohol intake: never substance use type: other current occupational status: employed Travel in the last 8 weeks: None household members: spouse housing: house current occupation: [employer] caffeine: Yes Have you lived/traveled outside [place] in past 30 days?: No Contact w/someone who lives/traveled outside [place] past 30 days?: No Exposure to someone with infectious disease in past 14 days?: No Do you have a fever (greater than 100.4 F or 38 C)?: No Have you tested positive for COVID-19: No Exposed to someone with COVID-19 in past 14 days?: No Do you have a sore throat?: No Do you have a cough?: No Do you have any weakness?: No Are you experiencing any nausea/vomitting?: No Do you have any diarrhea?: No Are you experiencing any unusual bleeding?: No Do you have any muscle aches/pain?: No Do you have any abdominal pain?: No Are you experiencing loss of taste or smell?: No Other Medical History Have you received the Flu Vaccine for this season: Yes Have you received the Pneumonia Vaccine: No Review of Systems Review of Systems Review of systems:: pertinent systems reviewed and negative unless documented below *Genitourinary Genitourinary: Reports abnormal vaginal bleeding and Reports pelvic pain Meds Home Medications and Allergies Home Medications ?Medication ?Instructions ?Recorded ?Confirmed ?Type albuterol sulfate 90 mcg/actuation 2 puff inhalation Q4-6H PRN 12/05/24 01/07/25 Rx aerosol inhaler bronchospasm #8.5 grams allopurinol 100 mg tablet 100 mg PO DAILY #90 tabs 12/05/24 01/07/25 Rx bupropion HCl 300 mg 24 hr tablet, 300 mg PO DAILY #90 tabs 12/05/24 01/07/25 Rx extended release (Wellbutrin XL) lisinopril 20 mg tablet 20 mg PO DAILY #90 tabs 12/05/24 01/07/25 Rx dextroamphetamine-amphetamine ER 20 mg PO DAILY #30 caps 12/19/24 01/07/25 Rx 20 mg 24hr capsule,extend release (Adderall XR) New Prescriptions to Start Prescriptions: Allergies Allergy/AdvReac Type Severity Reaction Status Date / Time erythromycin base AdvReac Mild Vomiting Verified 01/07/25 06:25 Exam Data for Last 24 hours Vital signs and Labs for Last 24 Hours: Temp Pulse Resp BP Pulse Ox O2 Del Method 97.6 F 66 18 138/82 100 Room Air 01/07/25 06:26 01/07/25 06:26 01/07/25 06:26 01/07/25 06:26 01/07/25 06:26 01/07/25 06:26 Constitutional Constitutional: no acute distress and cooperative *Routine HEENT Exam Head: Present normocephalic and atraumatic Eye: Absent conjunctivae pink ENT: Present mucous membranes moist *Routine Neck Exam Neck: Present full ROM *Routine Respiratory Exam Respiratory: Present CTA bilaterally and normal respiratory effort *Routine Cardiovascular Exam Cardiovascular: Present RRR *Routine Abdominal Exam Abdominal: Present soft; Absent tenderness or distended *Routine Rectal Exam Rectal:: deferred *Routine Genitalia Exam Genitalia:: normal female *Routine Extremities Exam Extremities: Present full ROM; Absent edema or calf tenderness *Routine Neurological Exam Neurological: Present alert, moving all extremities and normal speech Routine Psychiatric Exam Psychiatric: Present normal affect and cooperative Assessment and Plan *Assessment and plan (1) Dysfunctional uterine bleeding: Status: Acute Category: Medical Code(s): N93.8 - Other specified abnormal uterine and vaginal bleeding (2) Enlarged uterus: Status: Acute Category: Medical Code(s): N85.2 - Hypertrophy of uterus (3) Uterine fibroid: Status: Acute Qualifiers: Uterine leiomyoma location: unspecified location Qualified Code(s): D25.9 - Leiomyoma of uterus, unspecified Category: Medical Code(s): D25.9 - Leiomyoma of uterus, unspecified (4) Menorrhagia: Status: Acute Qualifiers: Menorrhagia type: with regular cycle Qualified Code(s): N92.0 - Excessive and frequent menstruation with regular cycle Category: Medical Code(s): N92.0 - Excessive and frequent menstruation with regular cycle (5) Dysmenorrhea: Status: Acute Category: Medical Code(s): N94.6 - Dysmenorrhea, unspecified Plan Admit to [facility] for scheduled surgery Reviewed surgery in detail. Reviewed risks, benefits, alternatives, expectations and possible complications of surgery. Risks include but are not limited to bleeding; infection; damage to adjacent structures (bowel, bladder, nerves, blood vessels, etc) (possibly requiring further intervention and/or longer hospital stay); VTE; risks with anesthesia; and risk of . All questions addressed and answered. Patient voiced understanding of risks and possible complications. Patient desires to proceed with surgery. Consent form signed. Proceed with MELANIE, BS as scheduled. She would like to keep her ovaries.
[2025-01-07] MEDS: CEFAZOLIN SODIUM 2 GM in 0.9 % SODIUM CHLORIDE 100 ML IV (07:40)
[2025-01-07] MEDS: METRONIDAZ/SOD CHL 500 MG/100 ML PIGGYBACK 100 MG IV (07:50)
--- NOTE | 2025-01-07 09:45 | P.PNANES_ITS ---
[facility] Anesthesia Record Part I Anesthesia Record I Intake, IV Amount: 1,400 Hydration: Adequate Estimated blood loss (mL): 600 Urine output (mL): 300 Blood Products used (#): none Blood Pressure: 110/67 SaO2: 97 Pulse Rate: 78 Airway Patency: Patent Respiratory Rate: 16 Temperature: 99.2 F Patient is:: Drowsy and Stable Stable to PACU at:: 09:40
--- NOTE | 2025-01-07 09:49 | EXP.OP.NOTE ---
Date of procedure: 01/07/25 Pre-op Diagnosis:: 1. Abnormal uterine bleeding 2. Fibroid uterus 3. Enlarged uterus 4. Menorrhagia 5. Dysmenorrhea Post-op Diagnosis:: id uterus 3. Enlarged uterus 4. Menorrhagia 5. Dysmenorrhea Procedure performed:: Total Abdominal Hysterectomy, bilateral salpingectomy Surgeon:: Teresa Dietz DO Marketing Assistant Retail Division(s):: Diego Hidalgo MD PRODUCT SAFETY TEST ENGINEER:: Andi Martines Anesthesia: GETA Estimated blood loss (mL): 600 Clinical Note:: Mrs Rosa Blackman is a 49 yo [id number] who presents to [facility] for scheduled surgery. She complains of heavy, painful irregular uterine bleeding. She was taking Oriahnn for heavy menstrual bleeding with fibroid uterus. She started Oriahnn July 2022. Her last Oriahnn dose was 09/30/24. Oriahnn is limited to 24 months. She was feeling great until she stopped Oriahnn. From October to November she bled for a month with two weeks of very heavy bleeding. In December she had a heavy period that lasted about one week, no bleeding for two days and then bleeding again for 4 days. She stopped bleeding today. She is eating healthier, running every day and lifting weights twice weekly. Last pap smear 09/15/23 - negative. Pelvic ultrasound 10/10/24 demonstrated uterus measuring 10.9 cm x 8.5 cm x 7.1 cm enlarged, retroflexed and axial with a combined endometrial thickness of 9.3mm. Difficult exam. There are least 6 fibroids within the uterus. Fibroid 1. 3.73 cm, Fibroid 2. 2.56 cm, Fibroid 3. 1.41 cm, Fibroid 4. 3.74 cm, Fibroid 5. 3.35 cm, Fibroid 6. 2.96 cm. Surgical history significant for x 2. She desires definitive surgical management with hysterectomy. Operative findings:: On exam, enlarged uterus with multiple fibroids. Grossly normal appearing bilateral fallopian tubes and ovaries. No adhesions or evidence of endometriosis. Operative note:: Discussed risks, benefits, alternatives, expectations and possible complications of surgery. All questions addressed and answered. Patient wished to proceed with surgery. Patient was wheeled back to the operating room and placed under general anesthesia without difficulty. The patient received 2 grams of Ancef and 500 mg Metronidazole preoperatively. SCDs in place. Spencer catheter was inserted and draining clear urine prior to the start of the procedure. She was placed in the supine position. She was prepped and draped in normal sterile fashion. Attention was then turned to the abdomen. A Pfannenstiel skin incision was made 2 cm above pubic symphysis, above prior Pfannenstiel scar. This was carried through to underlying layer of fascia. Fascia was incised in midline, extended laterally with Torres scissors. Superior aspect of fascial incision was grasped with two Karel clamps, elevated up, and rectus muscle dissected off bluntly and sharply with Torres scissors. Inferior aspect of fascial incision was grasped with two Karel clamps, elevated up, and rectus muscle dissected off bluntly and sharply with Torres scissors. The retcus muscle was then in the midline and the peritoneum was entered bluntly with a digit. Peritoneal incision was then extended superiorly and inferiorly with good visualization of the bladder. O'Dung O'last retractor was placed in the abdominal incision. Bowel was packed cephalad with warm moist laparotomy sponges. Bilateral uterine cornua grasped with Kiersten clamps. Uterus was deviated to the right, left round ligament was placed on stretch and incised between two clamps. The distal stump of the roung ligament was suture ligated with 0 Vicryl suture. The proximal stump was held with a Karel clamp. The leaves of the broad ligament were opened both anteriorly and posteriorly. The uterus was retracted cephalad. The anterior leaf of the broad ligament was opened down to the vesicouterine fold. Same procedure was carried out on the contralateral side. The vesicouterine peritoneal fold was elevated, and the bladder was dissected off of the lower uterine segment with sharp and blunt dissection. The uterus was retracted toward the pubic symphysis and deviated to right side. A finger was inserted through the peritoneum of the posterior leaf of the broad ligament under the suspensory ligament of the ovary and fallopian tube. The mesosalpinx and suspensory ligament were doubly clamped, incised and tied with 0 Vicryl suture removing the fallopian tube but leaving the ovary in situ. The distal stump was doubly suture ligated. The same procedure was carried out on the contralateral side. The uterus was retracted cephalad and deviated to the right side. A curved Zion clamp was placed at the junction of the lower uterine segment on the uterine vessels. An incision was made between the upper clamp and two lower clamps. The stump was doubly suture ligated with 0 Vicryl. The same procedure was carried out on the contralateral side. The uterus was held in traction in the cephalad position and pubovescial cervical fascia was dissected inferiorly. Two straight Karel clamps were applied to the cardinal ligament. Cardinal ligament was incised between the two clamps and the distal stump was ligated with 0 Vicryl suture. The same procedure was carried out on the contralateral side. Bilateral uterosacral ligaments were clamped between straight Karel clamps, incised, and suture ligated with 0 Vicryl suture. The uterus was amputated from lower uterine segment/cervix for better visualization. Uterus and bilateral fallopia tubes handed off surgical field. The lower uterine segment and upper vagina were palpated between the thumb and first finger of the surgeon's hand to ensure that the ligaments have been completely incised. Curved Torres scissors were used to cut cervix from vagina circumferentially. The cervix was removed and handed off of surgical field. All specimens will be sent to pathology for review. The edges of the vagina were grasped with straight Karel clamps. Vaginal cuff was closed in a running locking manner with 1 Vicryl suture. Pelvis was irrigated. Small amount of oozing noted between bladder and vaginal cuff. Surgicel powder was applied to vaginal cuff and bladder peritoneum. Small amount of oozing still noted. Gel Foam was placed along vaginal cuff and bladder peritoneum. Pressure was held for a few minutes. Hemostasis was noted. Gel Foam left in place on vaginal cuff. At this point all instruments and sponges were removed from the pelvis.? The peritoneum was grasped with Kiersten clamps x 3. The peritoneum was reapproximated with 0 Vicryl suture in a running stitch. The corners of the fascia were grasped with Karel clamps, and the fascia was reapproximated with two # 1 Vicryl suture overlapped to the right of midline. The subcutaneous tissue was irrigated and reapproximated with 2-0 Vicryl. The skin was reapproximated with Insorb zelalem. Steri strips and Telfa were placed over closed Pfannenstiel skin incision. Patient awoke from anesthesia without difficulty and was transferred to the recovery room in stable condition. Condition: stable Disposition: floor Specimens:: 1. Uterus, cervix 2. Bilateral fallopian tubes Complications:: None
[2025-01-07] MEDS: LACTATED RINGERS 1000ML 1,000 ML 125 ML IV (11:05)
[2025-01-07] MEDS: HYDROMORPHONE 2MG/ML SYRINGE 1 MG IV ×2 (11:05→14:54)
--- NOTE | 2025-01-07 13:37 | PC.NURSE ---
pt. walked to bathroom at this time but was unable to void
--- NOTE | 2025-01-07 14:23 | P.PNANES_ITS ---
[facility] Anesthesia Record Part II Anesthesia Record Part II Discharge Time: 10:10 Destination: Obstetric PACU nurse assessment reviewed?: Yes Patient Condition:: Good Anesthesia Complications:: None Swallowing reflex intact?: Yes Airway Patency: Patent Cyanosis?: No Blood Pressure: 111/73 SaO2: 98 Respiratory Rate: 16 Pulse Rate: 70 Temperature: 98.4 F Mental Status: Alert & Oriented Pain level:: 0 Nausea and/or vomitting:: None Intake, IV Amount: 0 Hydration: Adequate
[2025-01-07 14:53] LABS: Microscopic,Cath URINE MICROSCOPIC (MICROSCOPIC)
[2025-01-07 14:55] LABS: Appearance,Urine/Cath CLEAR (Clear); Bilirubin,Cath Negative (Negative); Blood, Urine/Cath Negative (Negative); Color,Urine/Cath YELLOW (Yellow); Glucose,Urine/Cath (UA) Negative (Negative); Ketones,Urine/Cath Negative (Negative); Leukocyte Esterase,Cath Negative (Negative); Nitrate,Cath Negative (Negative); Protein,Urine/Cath Negative (Negative); Specific Gravity, Urine/Cath 1.025 (1.005-1.030); Urobilinogen,Cath 0.2 EU/dl (0.2)
[2025-01-07 15:35] LABS: Squamous Epithelial Ur./Cath Occasional #/hpf (0-5)
[2025-01-07] MEDS: KETOROLAC 30MG/ML VIAL 30 MG IV ×2 (16:13→21:51)
[2025-01-07] MEDS: CEFAZOLIN SODIUM 1 GM in 0.9 % SODIUM CHLORIDE 50 ML IV (16:14)
[2025-01-07] MEDS: OXYCODONE 5MG IMMEDIATE RELEASE TABLET 5 MG PO (18:50)
--- NOTE | 2025-01-07 20:00 | PC.NURSE ---
Lower abdominal Transverse incision with telfa and tape dressing. Shadowing noted, unchanged from last shift.
[2025-01-07] MEDS: SENNOSIDES 8.6MG/DOCUSATE 50MG TABLET 1 TAB PO (22:01)
[2025-01-07] MEDS: POLYETHYLENE GLYCOL 3350 17 GM PACKET PO (22:02)
[2025-01-08] MEDS: LACTATED RINGERS 1000ML 1,000 ML 125 ML IV (00:05)
[2025-01-08] MEDS: CEFAZOLIN SODIUM 1 GM in 0.9 % SODIUM CHLORIDE 50 ML IV (00:06)
[2025-01-08] MEDS: OXYCODONE 5MG IMMEDIATE RELEASE TABLET 5 MG PO ×4 (00:06→13:03)
[2025-01-08 00:30] VITALS: BP 107/63; PULSE 49; RESP 18; TEMP 37; O2SAT 96
[2025-01-08] MEDS: ACETAMINOPHEN 500MG TAB 1000 MG PO ×2 (00:43→07:33)
[2025-01-08] MEDS: KETOROLAC 30MG/ML VIAL 30 MG IV (04:24)
[2025-01-08 04:30] VITALS: BP 129/74; PULSE 55; RESP 18; TEMP 37.3; O2SAT 97
--- NOTE | 2025-01-08 04:30 | PC.NURSE ---
Lower abdominal Transverse incision with telfa and tape dressing. Shadowing noted. Unchanged from last assessment.
--- NOTE | 2025-01-08 05:29 | PC.NURSE ---
Diet advanced to regular diet. Active bowel sounds auscultated X4 quadrants. Pt is passing flatus.
[2025-01-08 06:30] LABS: Basophils % 0.2 % (0.1-2.0); Eosinophils % 0.2 % (0.1-12.0); Hematocrit 30.6 % (37.0-47.0); Hemoglobin 10.1 g/dL (12.2-16.2); Lymphocytes # 2.5 K/mm3 (0.7-4.5); Lymphocytes % 20.6 % (10-50); Mean Corpuscular Hemoglobin 27.9 pg (27.0-31.2); Mean Corpuscular Volume 84.5 fl (81-99); Monocytes % 8.6 % (1.7-9.3); Neutrophils # 8.4 K/mm3 (1.8-7.8); Neutrophils % 70.1 % (37.0-80.0); Nucleated Red Blood Cells # 0 10^3/uL; Nucleated Red Blood Cells % 0 %; Platelet Count 352 K/mm3 (142-424); Red Blood Count 3.62 M/mm3 (4.20-5.40); Red Cell Distribution Width 12.8 % (11.5-17.5); Red Cell Distribution Width-SD 39.3 fL; White Blood Count 12.1 K/mm3 (4.8-10.8)
[2025-01-08 06:33] LABS: Chloride 107 mmol/L (98-107)
[2025-01-08 06:34] LABS: Albumin Level 3.1 g/dl (3.5-5.0); Potassium 4.1 mmoL/L (3.5-5.1); Sodium 137 mmol/L (136-145)
[2025-01-08 06:36] LABS: Alanine Aminotransferase 205 U/L (12-78); Anion Gap 8.1 mEq/L (5-15); Aspartate Amino Transferase 142 U/L (14-36); Blood Urea Nitrogen 12 mg/dl (7-17); Carbon Dioxide 26 mmol/L (22.0-30.0); Creatinine Clearance Estimated 109 mL/min (50-200); Estimated Glomerular Filt Rate 67 ml/min (>60); GFR (African American) 81 ML/MIN (>60)
[2025-01-08 06:37] LABS: Albumin/Globulin Ratio 1.1 (1.1-1.8); Alkaline Phosphatase 64 U/L (38-126); Bilirubin,Total 0.5 mg/dl (0.2-1.3); Calcium 8.9 mg/dl (8.4-10.2); Globulin 2.7 g/dL (1.3-3.2); Glucose 111 mg/dl (74-100); Total Protein,Serum 5.8 g/dl (6.3-8.2)
[2025-01-08 07:40] VITALS: BP 129/45; PULSE 66; RESP 18; TEMP 36.8; O2SAT 98
[2025-01-08] MEDS: POLYETHYLENE GLYCOL 3350 17 GM PACKET PO (09:06)
[2025-01-08] MEDS: IBUPROFEN 400 MG TABLET 800 MG PO (10:31)
[2025-01-08 12:00] VITALS: BP 137/55; PULSE 77; RESP 18; TEMP 36.8; O2SAT 98
--- NOTE | 2025-01-08 12:28 | P.DS_ITS ---
General Admission date:: 01/07/25 Discharge date: 01/08/25 HPI HPI HPI: POD # 1 s/p BERNARD NAVARRO Feeling well. Pain controlled. Voiding without difficulty and passing flatus. Tolerating regular diet. No nausea or vomiting. Denies fever/chills, chest pain and shortness of breath. No lower extremity swelling. Ambulating well ad laurita. Hospital Course Hospital Course Hospital Course: Mrs Rosa Blackman is a 49 yo [id number] who presents to [facility] for scheduled surgery. She complains of heavy, painful irregular uterine bleeding. She was taking Oriahnn for heavy menstrual bleeding with fibroid uterus. She started Oriahnn July 2022. Her last Oriahnn dose was 09/30/24. Oriahnn is limited to 24 months. She was feeling great until she stopped Oriahnn. From October to November she bled for a month with two weeks of very heavy bleeding. In December she had a heavy period that lasted about one week, no bleeding for two days and then bleeding again for 4 days. She stopped bleeding today. She is eating healthier, running every day and lifting weights twice weekly. Last pap smear 09/15/23 - negative. Pelvic ultrasound 10/10/24 demonstrated uterus measuring 10.9 cm x 8.5 cm x 7.1 cm enlarged, retroflexed and axial with a combined endometrial thickness of 9.3mm. Difficult exam. There are least 6 fibroids within the uterus. Fibroid 1. 3.73 cm, Fibroid 2. 2.56 cm, Fibroid 3. 1.41 cm, Fibroid 4. 3.74 cm, Fibroid 5. 3.35 cm, Fibroid 6. 2.96 cm. Surgical history significant for x 2. She desires definitive surgical management with hysterectomy. She underwent BERNARD NAVARRO on 01/07/25. She did well postoperatively. Pain controlled. Voiding without difficulty and passing flatus. Tolerating regular diet. Denies fever/chills, chest pain and shortness of breath. Vital signs stable, afebrile. Heart regular rate and rhythm. Lungs clear to auscultation. Abdomen soft, nontender. No lower extremity swelling. Ambulating well ad laurita. Normal hospital course. She was discharged to home on POD # 1 with instructions to follow-up in the office in 2 weeks or sooner if needed. Exam Data for Last 24 hours Vital signs and Labs for Last 24 Hours: Temp Pulse Resp BP Pulse Ox O2 Del Method O2 Flow Rate 98.3 F 66 18 129/45 L 98 Room Air 2 01/08/25 07:40 01/08/25 07:40 01/08/25 07:40 01/08/25 07:40 01/08/25 07:40 01/08/25 09:00 01/07/25 12:00 Laboratory Results - last 24 hr 01/07/25 07:30: Urine Color Yellow, Urine Appearance Clear, Urine pH 6.0, Ur Specific [place] 1.025, Urine Protein Negative, Urine Glucose (UA) Negative, Urine Ketones Negative, Urine Blood Negative, Urine Nitrate Negative, Urine Bilirubin Negative, Urine Urobilinogen 0.2, Ur Leukocyte Esterase Negative, Urine RBC None, Urine WBC None, Ur Squamous Epith Cells Occasional, Urine Bacteria None 01/08/25 05:45: WBC 12.1 H, RBC 3.62 L, Hgb 10.1 L, Hct 30.6 L, MCV 84.5, MCH 27.9, MCHC 33.0, RDW 12.8, Plt Count 352, MPV 10.0, Neut % (Auto) 70.1, Lymph % (Auto) 20.6, Hayes % (Auto) 8.6, Eos % (Auto) 0.2, Baso % (Auto) 0.2, Neut # (Au to) 8.4 H, Lymph # (Auto) 2.5, Hayes # (Auto) 1.0, Eos # (Auto) 0.0, Baso # (Auto) 0.0, Sodium 137, Potassium 4.1, Chloride 107, Carbon Dioxide 26, Anion Gap 8.1, BUN 12, Creatinine 0.90, Estimated Creat Clear 109, Estimated GFR 67, Est GFR ( Amer) 81, Glucose 111 H, Calcium 8.9, Total Bilirubin 0.5, AST 142 H, ALT 205 H, Alkaline Phosphatase 64, Total Protein 5.8 L, Albumin 3.1 L, Globulin 2.7, Albumin/Globulin Ratio 1.1 I & O for Last 24 hours: Intake & Output 01/05/25 01/06/25 01/07/25 01/08/25 23:59 23:59 23:59 23:59 Intake Total 1400 / 1400 Output Total 2100 / 2550 2000 / 2000 Balance -700 / -1150 -1999 Constitutional Constitutional: no acute distress and cooperative *Routine HEENT Exam Head: Present normocephalic and atraumatic Eye: Absent conjunctivae pink ENT: Present mucous membranes moist *Routine Neck Exam Neck: Present full ROM *Routine Respiratory Exam Respiratory: Present CTA bilaterally and normal respiratory effort *Routine Cardiovascular Exam Cardiovascular: Present RRR *Routine Abdominal Exam Abdominal: Present soft and normoactive bowel sounds; Absent distended or guarding *Routine Rectal Exam Patient deferred: visual exam *Routine Exam Patient deferred: external exam *Routine Extremities Exam Extremities: Present full ROM; Absent edema or calf tenderness *Routine Neurological Exam Neurological: Present alert, moving all extremities and normal speech Routine Psychiatric Exam Psychiatric: Present normal affect and cooperative Results Data Completed and Pending Labs on day of discharge: Labs from last 24 hours 01/08/25 01/07/25 05:45 07:30 WBC 12.1 H RBC 3.62 L Hgb 10.1 L Hct 30.6 L MCV 84.5 MCH 27.9 MCHC 33.0 RDW 12.8 Plt Count 352 MPV 10.0 Neut % (Auto) 70.1 Lymph % (Auto) 20.6 Hayes % (Auto) 8.6 Eos % (Auto) 0.2 Baso % (Auto) 0.2 Neut # (Auto) 8.4 H Lymph # (Auto) 2.5 Hayes # (Auto) 1.0 Eos # (Auto) 0.0 Baso # (Auto) 0.0 Sodium 137 Potassium 4.1 Chloride 107 Carbon Dioxide 26 Anion Gap 8.1 BUN 12 Creatinine 0.90 Estimated Creat Clear 109 Estimated GFR 67 Est GFR ( Amer) 81 Glucose 111 H Calcium 8.9 Total Bilirubin 0.5 AST 142 H ALT 205 H Alkaline Phosphatase 64 Total Protein 5.8 L Albumin 3.1 L Globulin 2.7 Albumin/Globulin Ratio 1.1 Urine Color Yellow Urine Appearance Clear Urine pH 6.0 Ur Specific [place] 1.025 Urine Protein Negative Urine Glucose (UA) Negative Urine Ketones Negative Urine Blood Negative Urine Nitrate Negative Urine Bilirubin Negative Urine Urobilinogen 0.2 Ur Leukocyte Esterase Negative Urine RBC None Urine WBC None Ur Squamous Epith Cells Occasional Urine Bacteria None DS: Diagnosis Discharge Diagnosis (1) Dysfunctional uterine bleeding: Status: Acute Code(s): N93.8 - Other specified abnormal uterine and vaginal bleeding (2) Enlarged uterus: Status: Acute Code(s): N85.2 - Hypertrophy of uterus (3) Uterine fibroid: Status: Acute Code(s): D25.9 - Leiomyoma of uterus, unspecified Qualifiers: Uterine leiomyoma location: unspecified location Qualified Code(s): D25.9 - Leiomyoma of uterus, unspecified (4) Menorrhagia: Status: Acute Code(s): N92.0 - Excessive and frequent menstruation with regular cycle Qualifiers: Menorrhagia type: with regular cycle Qualified Code(s): N92.0 - Excessive and frequent menstruation with regular cycle (5) Dysmenorrhea: Status: Acute Code(s): N94.6 - Dysmenorrhea, unspecified Meds Home Medications and Allergies Home Medications ?Medication ?Instructions ?Recorded ?Confirmed ?Type albuterol sulfate 90 mcg/actuation 2 puff inhalation Q4-6H PRN 12/05/24 01/07/25 Rx aerosol inhaler bronchospasm #8.5 grams allopurinol 100 mg tablet 100 mg PO DAILY #90 tabs 12/05/24 01/07/25 Rx bupropion HCl 300 mg 24 hr tablet, 300 mg PO DAILY #90 tabs 12/05/24 01/07/25 Rx extended release (Wellbutrin XL) lisinopril 20 mg tablet 20 mg PO DAILY #90 tabs 12/05/24 01/07/25 Rx dextroamphetamine-amphetamine ER 20 mg PO DAILY #30 caps 12/19/24 01/07/25 Rx 20 mg 24hr capsule,extend release (Adderall XR) ibuprofen 800 mg tablet 800 mg PO Q8H PRN pain #20 tabs 01/08/25 Rx oxycodone 5 mg tablet 5 mg PO Q4HP PRN Moderate Pain 01/08/25 Rx (4-6) #20 tabs New Prescriptions to Start Prescriptions: Teresa Brand oxycodone Teresa Dietz Allergies Allergy/AdvReac Type Severity Reaction Status Date / Time erythromycin base AdvReac Mild Vomiting Verified 01/07/25 06:25 Discharge Plan Disposition Patient Disposition: Home, Self-Care Condition: Good Discharge Order Discharge Orders: Discharge Order (Routine); Ordered 04/29/25 Ordered By: Teresa Dietz Follow up Plan Follow up with: Teresa Dietz DO [Staff Physician] - 2 weeks Prescriptions/Medication Reconciliation: New oxycodone 5 mg Tablet 5 mg PO Q4HP PRN (Reason: Moderate Pain (4-6)) Qty: 20 0RF ibuprofen 800 mg tablet 800 mg PO Q8H PRN (Reason: pain) Qty: 20 0RF Continued albuterol sulfate 90 mcg/actuation HFA aerosol inhaler 2 puff inhalation Q4-6H PRN (Reason: bronchospasm) Qty: 8.5 5RF allopurinol 100 mg tablet 100 mg PO DAILY Qty: 90 3RF bupropion HCl [Wellbutrin XL] 300 mg tablet extended release 24 hr 300 mg PO DAILY Qty: 90 3RF lisinopril 20 mg tablet 20 mg PO DAILY Qty: 90 3RF dextroamphetamine-amphetamine [Adderall XR] 20 mg capsule,extended release 24hr 20 mg PO DAILY Qty: 30 0RF Problem Reconciliation Problems Reviewed?: Yes Patient Discharge Instructions ACTIVITY: Limited activity DIET: continue same diet and regular diet Additional Instructions: Discharge instructions following hysterectomy: 1. Take 800 mg Ibuprofen every 8 hours, take Oxy 5 mg every 4 hours for the next 2-3 days. Then take medication as needed for pain. 2. Take Miralax twice a day for the next 3 days then take as needed to keep regular bowel movements. Avoid constipation 3. Nothing in the vagina for 6 weeks - no intercourse, douching or tampons. No tub baths/hot tubs or swimming pools 4. No lifting anything heavier than 5 pounds for 6 weeks 5. Reasons to go to the ED or call On-Call doctor - fever (greater than 100.4) - chest pain or shortness of breath - lower leg/calf swelling, redness or pain. This could be a sign of a blood clot - heavy vaginal bleeding - vaginal discharge (malodorous and/or purulent) Teresa Dietz DO [facility] [phone] Print Language: Guyanese Providers Primary Care Provider: Melania Camacho Admit Provider: Teresa Dietz Attending Provider: Teresa Dietz
--- NOTE | 2025-01-08 14:03 | PC.NURSE ---
1350 Discharge teaching provided, questions encouraged and answered.
== END 2025-01-08 13:58 | disposition home or self-care (01) | DRG 743 ==
LOC: OB 01-08 05:28
PROVIDERS: Admitting Provider Obstetrics & Gynecology; PCP Nurse Practitioner Family; Visit Provider Obstetrics & Gynecology
PROC: 0UT90ZZ Resection of Uterus, Open Approach (ICD-10-PCS; CPT 58150; principal; 2025-01-07 07:30)
DX: D25.9 Leiomyoma of uterus, unspecified (principal); N92.1 Excessive and frequent menstruation with irregular cycle; E28.2 Polycystic ovarian syndrome; N94.6 Dysmenorrhea, unspecified; N85.2 Hypertrophy of uterus; Z88.1 Allergy status to other antibiotic agents; Z79.899 Other long term (current) drug therapy; Z98.891 History of uterine scar from previous surgery; Z90.49 Acquired absence of other specified parts of digestive tract; Z30.2 Encounter for sterilization
CPT/HCPCS: 36415; 80053; 81001; 85025; 86850; 96374; J3490; J0666; J0690; J1100; J1171; J1885; J2250; J2405; J3010; J7120

== ENCOUNTER 2025-01-18 12:07 | Outpatient (CLI) | payer BC, SELFPAY ==
[2025-01-18 12:46] LABS: Basophils # 0.1 K/mm3 (0-0.2); Basophils % 1.1 % (0.1-2.0); Eosinophils # 0.3 Kmm3 (0.0-0.4); Eosinophils % 3.6 % (0.1-12.0); Hematocrit 37.8 % (37.0-47.0); Hemoglobin 12.4 g/dL (12.2-16.2); Immature Granulocytes # 0.02 10^3uL; Immature Granulocytes % 0.2 %; Lymphocytes # 1.6 K/mm3 (0.7-4.5); Lymphocytes % 17.1 % (10-50); Mean Corpuscular HGB Conc 32.8 g/dL (31.8-35.4); Mean Corpuscular Hemoglobin 27.3 pg (27.0-31.2); Mean Corpuscular Volume 83.1 fl (81-99); Mean Platelet Volume 9.3 fl (7.4-10.4); Monocytes # 0.7 K/mm3 (0.1-1.0); Monocytes % 7.2 % (1.7-9.3); Neutrophils # 6.5 K/mm3 (1.8-7.8); Neutrophils % 70.8 % (37.0-80.0); Nucleated Red Blood Cells # 0 10^3/uL; Nucleated Red Blood Cells % 0 %; Platelet Count 453 K/mm3 (142-424); Red Blood Count 4.55 M/mm3 (4.20-5.40); Red Cell Distribution Width 12.2 % (11.5-17.5); Red Cell Distribution Width-SD 37.2 fL; White Blood Count 9.2 K/mm3 (4.8-10.8)
[2025-01-18 12:55] LABS: Albumin Level 4.4 g/dl (3.5-5.0); Chloride 106 mmol/L (98-107); Potassium 4.6 mmoL/L (3.5-5.1); Sodium 140 mmol/L (136-145)
[2025-01-18 12:58] LABS: Alanine Aminotransferase 49 U/L (12-78); Albumin/Globulin Ratio 1.6 (1.1-1.8); Alkaline Phosphatase 132 U/L (38-126); Anion Gap 9.6 mEq/L (5-15); Aspartate Amino Transferase 24 U/L (14-36); Bilirubin,Total 0.4 mg/dl (0.2-1.3); Blood Urea Nitrogen 13 mg/dl (7-17); Carbon Dioxide 29 mmol/L (22.0-30.0); Estimated Glomerular Filt Rate 67 ml/min (>60); GFR (African American) 81 ML/MIN (>60); Globulin 2.8 g/dL (1.3-3.2); Glucose 98 mg/dl (74-100); Total Protein,Serum 7.2 g/dl (6.3-8.2)
== END 2025-01-18 23:59 | disposition home or self-care (01) ==
LOC: LAB 12:07
PROVIDERS: PCP Nurse Practitioner Family; Visit Provider Obstetrics & Gynecology
DX: R74.01 Elevation of levels of liver transaminase levels (principal)
CPT/HCPCS: 36415; 80053; 85025

== ENCOUNTER 2025-01-30 09:40 | Outpatient (CLI) | payer BC, SELFPAY ==
--- NOTE | 2025-01-30 09:47 | XR_ITS ---
FINAL REPORT CLINICAL HISTORY: Cervical neck pain, trap muscle spasm COMPARISON: None FINDINGS: CERVICAL SPINE 5 views, including flexion and extension views, were obtained. There is no acute fracture or malalignment. There is mild degenerative disc space narrowing at C5-6. The remaining disc heights are normal. There is no instability with flexion and extension. IMPRESSION Mild degenerative disc disease C5-6 without malalignment or instability. Reviewed, Interpreted and Dictated by Fernando Henriquez MD Transcribed by Iva Aguirre Authenticated and . [facility]
== END 2025-01-30 23:59 | disposition home or self-care (01) ==
LOC: RAD 09:41
PROVIDERS: PCP Nurse Practitioner Family; Visit Provider Nurse Practitioner Family
DX: M50.322 Other cervical disc degeneration at C5-C6 level (principal)
CPT/HCPCS: 72052

== ENCOUNTER 2025-02-20 14:46 | Outpatient (CLI) | payer BC, SELFPAY ==
--- OUTSIDE RECORDS SUMMARY | 2025-02-20 14:48 | XMS_ITS | Clinical Summary ---
Author Organization [facility] Address [address] [place] [address] Phone Care Team Providers Care Donor Relations Manager Name Role Phone Mickey HASSAN, Arnulfo Jacobs Unavailable [ ] Conditions or Problems Problem Name Problem Code Onset Date Status Entry Date Provider Comment Standard Description Annotate Carbuncle and furuncle of trunk/Left Side L02.239 (ICD-10-CM ) Active Bia Whiting Carbuncle of trunk, unspecified CARBUNCLE: ARM L02.439 (ICD-10-CM ) 05/23 Inactive 05/23 Bia Whiting Carbuncle of limb, unspecified CARBUNCLE: NECK L02.13 (ICD-10-CM ) 05/23 Inactive 05/23 Bia Whiting Carbuncle of neck FURUNCULOSIS 97019780 (SNOMED CT) 10/17 Inactive 10/17 Bia Whiting Furunculosis of skin AND/OR subcutaneous tissue FURUNCULOSIS 79347964 (SNOMED CT) 10/17 Removed 10/17 Arnulfo Arevalo MD Furunculosis of skin AND/OR subcutaneous tissue OBESITY 597969805 (SNOMED CT) 10/17 Active 10/17 Arnulfo Arevalo MD Obesity 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 (ICD-10-CM ) 05/23 Active 05/23 Sonali Cobian Methicillin resistant Staphylococcus aureus infection, unspecified site CARBUNCLE: NECK L02.13 (ICD-10-CM ) 05/23 Removed 05/23 Sonali Cobian Carbuncle of neck CARBUNCLE: ARM L02.439 (ICD-10-CM ) 05/23 Removed 05/23 Sonali Mango Aguilar of limb, unspecified Medications Medication Instructions Start Date Stop Date Generic Name ND Provider BACTRIM DS 800-160 MG TABS one tablet daily SULFAMETHOXAZOLE- TRIMETHOPRIM [id number] Arnulfo Arevalo MD WELLBUTRIN 100 MG ORAL TABLET BUPROPION HCL 41713488674 Arnulfo Arevalo MD MINOCYCLINE HCL 100 MG TABS MINOCYCLINE HCL 15749810472 Arnulfo Arevalo MD BACTRIM DS 800-160 MG TABS Take 2 tablets by mouth twice a day SULFAMETHOXAZOLE- TRIMETHOPRIM [id number] Arnulfo Arevalo MD MINOCYCLINE HCL 100 MG TABS MINOCYCLINE HCL 36999862558 Arnulfo Arevalo MD MINOCYCLINE HCL 100 MG CAPS one tablet daily MINOCYCLINE HCL 70876916922 Arnulfo Arevalo MD MINOCYCLINE HCL 100 MG CAPS MINOCYCLINE HCL 43494033436 Arnulfo Arevalo MD CITALOPRAM HYDROBROMIDE 10 MG TABS CITALOPRAM HYDROBROMIDE 86196990523 Arnulfo Arevalo MD LEXAPRO 10 MG TABS ESCITALOPRAM OXALATE 62214396610 Arnulfo Arevalo MD BACTROBAN 2 % EXTERNAL OINTMENT apply internasally twice a day x 10 days MUPIROCIN 28688797480 Arnulfo Arevalo MD BACTROBAN 2 % EXTERNAL OINTMENT apply internasally twice a day x 10 days MUPIROCIN [id number] Arnulfo Arevalo MD SUSSY TABS NORETHINDRONE TABS 75461343454 Arnulfo Arevalo MD ALDACTONE TABS SPIRONOLACTONE TABS 76696997035 Arnulfo Areavlo MD CITALOPRAM HYDROBROMIDE 10 MG TABS CITALOPRAM HYDROBROMIDE 67067526015 Arnulfo Arevalo MD MINOCYCLINE HCL 100 MG CAPS MINOCYCLINE HCL 85567638952 Arnulfo Arevalo MD Medications Administered No information available. Allergies, Adverse Reactions, Alerts Allergy Name Reaction Description Start Date Severity Statu s Provider ERYTHROMYCIN Moderate Active Arnulfo Arevalo MD Results Date Name Value Unit Range Flag Description Clinical Lists Update: Prelo ad SMOK STATUS never smoker Tobacco smoking status Lab Report: CBC w Auto Diff IMM GRANU % 0.2 % 0.0-0.6 N Immature granulocytes/100 leukocytes in Blood BASOPHIL % 0.4 % 0.0-1.0 N Basophils/ 100 leukocytes in Blood by Manual count % EOS AUTO 2.1 % 0.0-3.0 N Eosinophil s/100 leukocytes in Blood by Automated count MONOCYTE BF 6.8 % 0.0-12.0 N monocyte s as percent of body fluid leukocytes LYMPHS % 23.9 % 24.0-44.0 L Lymphocyte s/100 leukocytes in Blood by Automated count PMN % 66.6 % 41.0-71.0 N Neutrophils /100 leukocytes in Blood by Automated count [id number] 0.0 GE use only - for [employer] import when terms are not otherwise specified BASOABSOLMAN 0.04 K/MCL {Cells}/u L 0.00-0.20 N basophils, absolute, manual EOS ABSLT 0.19 10*3/uL 0.10-0.30 N Eosinophi ls [#/volume] in Blood MONOCYTABMAN 0.61 K/MCL {Cells}/u L 0.00-1.00 N monocytes, absolute, manual LYMPHSABSMAN 2.15 K/MCL {Cells}/u L 0.60-4.80 N lymphocytes, absolute, manual ABS NEUTROPH 5.98 10*3/uL 1.50-8.30 N Neutro phils [#/volume] in Blood PLATELETS 334 10*3/mm3 150-450 N Platelets [#/volume] in Blood by Automated count RDW_ 13.9 11.3-14.5 N RDW, no uni ts MCHC 34.2 G/DL 32.0-36.0 N MCHC [Mass/ volume] by Automated count MCH 28.3 pg 27.0-31.0 N MCH [Entiti c mass] by Automated count MCV 82.9 fL 80.0-99.0 N MCV [Entiti c volume] by Automated count HCT 45.9 % 34.5-44.0 H Hematocrit [Volume Fraction] of Blood by Automated count HGB 15.7 g/dL 11.5-15.5 H Hemoglobin [Mass/volume] in Blood RBC 5.54 M/MCL 10*6/mm3 3.89-5.14 H Erythro cytes [#/volume] in Blood by Automated count WBC 8.99 10*3/mm3 3.50-10.8 0 N Leukocytes [#/volume] in Blood by Automated count Lab Report: Comprehensive Me tabolic Panel ANIONGAP 4 mmol/L 3-11 N anion gap, s tex GFRC 73 mL/min/1. 73m2 Glomerular Filtration Rate Calculation ALBUMIN 4.7 g/dL 3.4-4.8 N Albumin [Mass/volume] in Serum or Plasma PROTEIN, TOT 8.3 g/dL 6.4-8.3 N Protein [Mass/volume] in Serum or Plasma BILI TOTAL 0.6 mg/dL 0.3-1.2 N Bilirubin. total [Mass/volume] in Serum or Plasma SGPT (ALT) 26 U/L 7-40 N Alanine aminotransferase [Enzymatic activity/volume] in Serum or Plasma SGOT (AST) 25 U/L 8-33 N Aspartate aminotransferase [Enzymatic activity/volume] in Serum or Plasma ALK PHOS 63 U/L 25-100 N Alkaline delia sphatase [Enzymatic activity/volume] in Blood CALCIUM 9.9 mg/dL 8.7-10.4 N Calcium [Moles/volume] in Serum or Plasma CO2 31 mmol/L 20-31 N Carbon dioxid e, total [Moles/volume] in Venous blood CHLORIDE 107 mmol/L 98-107 N Chloride [Moles/volume] in Serum or Plasma POTASSIUM 4.8 mmol/L 3.4-5.4 N Potassium [Moles/volume] in Serum or Plasma SODIUM 141 mmol/L 136-145 N Sodium [Moles/volume] in Serum or Plasma CREATININE 1.0 mg/dL 0.6-1.3 N Creatinine [Mass/volume] in Serum or Plasma BUN 13 mg/dL 6-20 N Urea nitrogen [Mass/volume] in Serum or Plasma GLUCOSE SER 95 mg/dL 70-100 N Glucose [Mass/volume] in Serum or Plasma Office Visit: f/u rm 2 MEDS REVIEW Done Documenta tion of current medications (procedure) Lab Report: Culture Anaerobe CULTURE Specimen/So urce: Aspirate/L FLANK culture, comment Plan of Care Type Date Detail Pending order Continue oral an tibiotics Pending order Continue oral an tibiotics Procedures Code Procedure Name Date Entry Date CPT-Cooral Continue oral antibiotics 24/08/12 CPT-Cooral Continue oral antibiotics 20 25/07/05 Vital Signs Date Name Value Unit Description BMI (Body Mass Index) 39.98 kg/m2 Bod y Mass Index (Ratio) Body Temperature 98.8 [degF] temperat ure E&M BP Diastolic 88 mm[Hg] blood pressu re, diastolic BP Systolic 132 mm[Hg] blood pressur e, systolic Heart Rate 106 /min pulse rate Height 65 [in_us] height E&M Respiratory Rate 20 /min respirat ory rate E&M Weight Measured 239.4 [lb_av] weight E& M Weight Measured 239.4 [lb_av] weight E& M Immunizations No information available. Advance Directives No information available.
[2025-02-20 15:23] LABS: Amphetamine/Metha Screen,Urine Positive ng/ml (<1000)
[2025-02-20 15:24] LABS: Barbiturates Screen,Urine Negative ng/ml (<200); Benzodiazepines Screen,Urine Negative ng/ml (<200)
[2025-02-20 15:25] LABS: Cannabinoid Screen,Urine Negative ng/ml (<50); Cocaine Screen,Urine Negative ng/ml (<300)
[2025-02-20 15:26] LABS: Methadone Screen,Urine Negative ng/ml (<300)
[2025-02-20 15:27] LABS: Opiate Screen,Urine Negative ng/ml (<300); Phencyclidine Screen,Urine Negative ng/ml (<25)
== END 2025-02-20 23:59 | disposition home or self-care (01) ==
LOC: LAB 14:46
PROVIDERS: PCP Nurse Practitioner Family; Visit Provider Nurse Practitioner Acute Care
DX: F90.0 Attention-deficit hyperactivity disorder, predominantly inattentive type (principal)
CPT/HCPCS: 80307

== ENCOUNTER 2025-07-29 08:47 | Outpatient (CLI) | payer BC, SELFPAY ==
--- NOTE | 2025-07-29 08:49 | XR_ITS ---
FINAL REPORT TECHNIQUE: 3 views right foot CLINICAL HISTORY: right foot injury COMPARISON: None FINDINGS: RIGHT FOOT: 3 images of the right foot were obtained. There is no evidence of fracture or dislocation. The joint spaces are intact. Note is made of a tripartite sesamoid. There is no soft tissue abnormality identified. IMPRESSION: No acute bony abnormality. Reviewed, Interpreted and Dictated by Miguel Gutierrez MD Transcribed by Lucretia Malin Authenticated and [facility]
== END 2025-07-29 23:59 ==
LOC: RAD 08:48
PROVIDERS: PCP Nurse Practitioner Family; Visit Provider Nurse Practitioner Family
DX: S90.31XA Contusion of right foot, initial encounter (principal); M25.871 Other specified joint disorders, right ankle and foot; X58.XXXA Exposure to other specified factors, initial encounter
CPT/HCPCS: 73630

== ENCOUNTER 2025-08-15 14:19 | Outpatient (CLI) | payer BC, SELFPAY ==
--- NOTE | 2025-08-15 14:30 | MR_ITS ---
FINAL REPORT CLINICAL HISTORY: stress reaction/fracture,metatarsalgia,neuropraxia pain in the ball of her foot, between 1st and 2nd digit COMPARISON: None FINDINGS: Multiplanar MR imaging of the right foot was performed without contrast. The Achilles tendon is intact. There is a small plantar spur. There is a complex cystic structure in the anterior calcaneus measuring 1.8 x 1.2 cm. There are small osteochondral lesions in the medial talar dome measuring 4 mm and in the posterior talus measuring 6 mm. No evidence of fracture. There is a mild amount of fluid within the 2nd flexor tendon at the level of the metatarsal phalangeal joint which may be related to mild tenosynovitis. The musculature is intact. The plantar aponeurosis is intact. No soft tissue mass or cyst is identified. IMPRESSION: Osteochondral lesions in the talus. Mild tenosynovitis 2nd flexor tendon. Reviewed, Interpreted and Dictated by Miguel Gutierrez MD Transcribed by Myrna Villegas Authenticated and [facility]
== END 2025-08-15 23:59 | disposition home or self-care (01) ==
LOC: RAD 14:20
PROVIDERS: PCP Nurse Practitioner Family; Visit Provider Podiatrist
DX: M93.871 Other specified osteochondropathies, right ankle and foot (principal); M65.971 Unspecified synovitis and tenosynovitis, right ankle and foot; M84.374A Stress fracture, right foot, initial encounter for fracture; M77.41 Metatarsalgia, right foot; S84 Injury of nerves at lower leg level; S99.921D Unspecified injury of right foot, subsequent encounter
CPT/HCPCS: 73718